=== PATIENT | male | born 1960 | race Caucasian/White ===

== ENCOUNTER → 2018-06-16 10:11 | Outpatient (CLI) | payer OTHER, SELFPAY ==
[2018-06-16 13:11] LABS: Hemoglobin A1C 7.2 % (4.5-6.2)
== END ==
PROVIDERS: PCP Family Medicine; Visit Provider Family Medicine
DX: E11.9 Type 2 diabetes mellitus without complications (principal)
CPT/HCPCS: 36415; 83036

== ENCOUNTER 2018-11-03 08:35 | Outpatient (CLI) | payer OTHER, SELFPAY ==
--- NOTE | 2018-11-03 08:06 | DI.RAD_ITS ---
SYMPTOM/DIAGNOSIS: S/P LT TKA, ONE YEAR FOLLOW UP LEFT KNEE: Two views. Comparison is made with 11/16/17. There are again seen post surgical changes of a left total knee replacement. The orthopedic hardware shows no evidence of failure. The bones are intact. The soft tissues are unremarkable. IMPRESSION: Stable left TKR.
== END 2018-11-03 08:55 ==
PROVIDERS: PCP Family Medicine; Visit Provider Physician Assistant
DX: Z96.652 Presence of left artificial knee joint (principal); Z47.1 Aftercare following joint replacement surgery
CPT/HCPCS: 73560

== ENCOUNTER 2018-12-13 09:44 | Outpatient (CLI) | payer OTHER, SELFPAY ==
[2018-12-13 13:00] LABS: CREATININE 0.93 mg/dL (0.70-1.30); Potassium 4.4 mmol/L (3.5-5.1)
[2018-12-13 13:29] LABS: Hemoglobin A1C 7.2 % (4.5-6.2)
[2018-12-16 16:12] LABS: Testosterone, Free 9.34 ng/dL (3.87-14.7); Testosterone, Total 322 ng/dL (240-950)
== END 2018-12-13 10:04 ==
PROVIDERS: PCP Family Medicine; Visit Provider Family Medicine
DX: E11.9 Type 2 diabetes mellitus without complications (principal); N52.9 Male erectile dysfunction, unspecified
CPT/HCPCS: 36415; 84402; 84403; 82565; 83036; 84132

== ENCOUNTER 2019-04-05 09:14 | Outpatient (CLI) | payer OTHER, SELFPAY ==
[2019-04-05 16:13] LABS: Hemoglobin A1C 7.4 % (4.5-6.2)
== END 2019-04-05 09:34 ==
PROVIDERS: PCP Family Medicine; Visit Provider Family Medicine
DX: E11.9 Type 2 diabetes mellitus without complications (principal)
CPT/HCPCS: 36415; 83036

== ENCOUNTER 2019-10-25 02:23 | Outpatient (CLI) | payer OTHER, SELFPAY ==
[2019-10-25 09:47] LABS: Hemoglobin A1C 6.6 % (3.8-5.6)
[2019-10-25 10:29] LABS: CREATININE 0.83 mg/dL (0.70-1.30); Calculated LDL 149 mg/dL; Cholesterol 224 mg/dL (<200); HDL Cholesterol 49 mg/dL (40-60); Potassium 4.1 mmol/L (3.5-5.1); Triglyceride 130 mg/dL (<150)
== END 2019-10-25 02:43 ==
PROVIDERS: PCP Family Medicine; Visit Provider Family Medicine
DX: E11.9 Type 2 diabetes mellitus without complications (principal); E66.9 Obesity, unspecified
CPT/HCPCS: 36415; 80061; 82565; 83036; 84132

== ENCOUNTER 2019-11-20 14:17 | Outpatient (CLI) | payer OTHER, SELFPAY ==
--- NOTE | 2019-11-20 14:33 | DI.RAD_ITS ---
EXAM: XR SHOULDER RT COMPLETE 2+V CLINICAL HISTORY: Pain TECHNIQUE: COMPARISON: LEFT SHOULDER COMPLETE from 02/17/2016 FINDINGS: Two views were obtained. There may be slight narrowing of the cartilaginous joint space of the gleno humeral joint. There are prominent marginal osteophytes of glenoid humerus. Prominent hypertrophic degenerative changes noted at the AC joint and there is hypertrophic spurring of the tip of the acrom ion as well. IMPRESSION: Degenerative changes as described above
== END 2019-11-20 14:37 ==
PROVIDERS: PCP Family Medicine; Visit Provider Student in an Organized Health Care Education/Training Program
DX: M25.512 Pain in left shoulder (principal); M19.012 Primary osteoarthritis, left shoulder
CPT/HCPCS: 73030

== ENCOUNTER 2019-12-14 09:53 | Outpatient (CLI) | payer OTHER, SELFPAY ==
[2019-12-17 11:26] LABS: PSA, Screening 0.5 ng/mL (0.0-3.5)
== END 2019-12-14 10:13 ==
PROVIDERS: PCP Family Medicine; Visit Provider Family Medicine
DX: Z12.5 Encounter for screening for malignant neoplasm of prostate (principal)
CPT/HCPCS: 36415; 84153

== ENCOUNTER 2020-09-03 09:56 | Emergency (ER) | payer OTHER, SELFPAY ==
[2020-09-03 10:00] VITALS: BP 150/77; PULSE 91; RESP 16; TEMP 36.8; O2SAT 94
--- NOTE | 2020-09-03 10:31 | ED.GENADUL_ITS ---
Discharge Plan Disposition Patient Disposition: HOME Condition: Stable Discharge Details Clinical Impression: Bursitis of hip, right Primary Care Provider: Evangelist Amin ED Provider: Raheem Glass Home Meds and New Rx's Prescriptions: Continued c-pap inhalation HS RF: 0 atorvastatin 20 mg tablet 20 mg PO QPM Qty: 90 RF: 3 losartan-hydrochlorothiazide 100-12.5 mg tablet 1 tab PO DAILY Qty: 90 RF: 3 metformin 1,000 mg tablet 1,000 mg PO BID Qty: 180 RF: 3 omeprazole 20 mg capsule,delayed release(DR/EC) 20 mg PO DAILY Qty: 90 RF: 3 amlodipine 10 mg tablet 10 mg PO DAILY Qty: 90 RF: 4 Jardiance 10 mg tablet 10 mg PO DAILY Qty: 90 RF: 3 meloxicam 15 mg tablet 15 mg PO DAILY Qty: 30 RF: 1 Discharge Instructions Instructions: Hip Bursitis (ED) Additional Instructions: Cool and/or warm compresses every 2 hours for 20 minutes. Gentle stretching as tolerated. [id number] medication as directed for symptomatic control. Please watch for new or worsening symptoms and return to the ER for any concerns. I do recommend reaching out to your orthopedic, Dr. Dumont, and seeing if they are able to see you sooner than your scheduled appointment on September 29. Medical Decision Making 59-year-old gentleman presents with right lateral hip pain that began yesterday, atraumatic. Clinically he has lateral point tenderness that would be most consistent with a hip bursitis. There has been no trauma, no clear indication for imaging at this time. No signs of infection such as septic joint, septic bursitis, cellulitis, etc. I do not believe that any laboratory values are indicated. He appears well, nontoxic and is neurologically intact. We discussed conservative therapy for bursitis such as anti-inflammatories, gentle stretching, cool and/or warm compresses, and attempting to expedite his outpatient care through orthopedics. He understands that if he fails conservative therapy he may need steroid injection. Patient comfortable this plan and has no additional questions or concerns. Medical Records Medical records reviewed: Yes I reviewed the patient's medical records. HPI General Mode of arrival: ambulatory . Date/Time Provider Initiated Documentation: 09/03/20 09:57 . Limitations to Documentation: no limitations . Information obtained by: patient . HPI Narrative: This is a 59-year-old gentl eman who reports a past medical history includes diabetes, hypertension, GERD, presenting to the ER today complaining of right hip pain. He reports that he has had his left knee replaced and is scheduled with orthopedics later this month for his right knee evaluation and subsequently likely replacement. He does report chronic pain in the right knee which does cause him to change his gait slightly. 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 Yesterday he noticed point tenderness over the right lateral hip, no known injury. He denies fever, redness, chest pain, shortness of breath, pain or swelling in his calf. He reports that the pain was severe yesterday, took Motrin and now the pain is moderate. He is able to bear weight. He denies numbness, tingling, weakness. Related Data Home Medications Medication Instructions Recorded Confirmed c-pap INHALATION HS 06/12/19 05/06/20 amlodipine 10 mg tablet 10 mg PO DAILY #90 tab 09/24/19 09/03/20 atorvastatin 20 mg tablet 20 mg PO QPM #90 tab 12/14/19 09/03/20 losartan 100 1 tab PO DAILY #90 tab 12/14/19 09/03/20 mg-hydrochlorothiazide 12.5 mg tablet empagliflozin 10 mg tablet 10 mg PO DAILY #90 tab 04/16/20 09/03/20 metformin 1,000 mg tablet 1,000 mg PO BID #180 tab-cap 05/06/20 09/03/20 omeprazole 20 mg capsule,delayed 20 mg PO DAILY #90 tab-cap 05/06/20 09/03/20 release meloxicam 15 mg tablet 15 mg PO DAILY #30 tab 09/03/20 09/03/20 Previous Rx's Medication Instructions Recorded amlodipine 10 mg tablet 10 mg PO DAILY #90 tab 09/24/19 atorvastatin 20 mg tablet 20 mg PO QPM #90 tab 12/14/19 losartan 100 1 tab PO DAILY #90 tab 12/14/19 mg-hydrochlorothiazide 12.5 mg tablet empagliflozin 10 mg tablet 10 mg PO DAILY #90 tab 04/16/20 metformin 1,000 mg tablet 1,000 mg PO BID #180 tab-cap 05/06/20 omeprazole 20 mg capsule,delayed 20 mg PO DAILY #90 tab-cap 05/06/20 release meloxicam 15 mg tablet 15 mg PO DAILY #30 tab 09/03/20 Allergies Allergy/AdvReac Type Severity Reaction Status Date / Time No Known Allergies Allergy Verified 09/03/20 10:05 General Stated Complaint: Orthopedic IBETH: 4 Review of Systems Constitutional Constitutional: Denies fever(s) and Denies weakness Cardiovascular Cardiovascular: Denies chest pain, Denies leg edema and Denies dyspnea Respiratory Respiratory: Denies dyspnea Musculoskeletal Musculoskeletal: Denies back pain, Reports arthralgias, Denies joint swelling, Denies numbness, Reports stiffness and Denies tingling Integumentary/Breasts Skin/Breast: Denies erythema Neurologic Neurologic: Denies numbness, Denies tingling and Denies weakness [facility] Medical History Chest pain Obesity Right rotator cuff tendonitis Subacromial injection: 11/20/19 Surgical History Arthroplasty of knee (10/11/13) 10/11/13 left 11/03/17 LEFT Family History Mother , age 90 No problems noted. Father Heart disease [place] Brother Diabetes Maternal Grandfather No problems noted. Maternal Grandmother Stroke Paternal Grandmother No problems noted. Sister No problems noted. Sister Diabetes Brother No problems noted. Son No problems noted. Daughter No problems noted. Daughter No problems noted. Social History Smoking/Tobacco Use Status: Never Smoking risk assessment performed?: Yes Alcohol Intake: current Alcohol Intake frequency: 0-2 drinks per day Alcohol type: beer and hard liquor Drug use: Never Substance use type: does not use Household members: spouse Housing: house Communication Needs: None Pets and animals: Yes Pets and animals: dog(s) Sexually active: Yes Do you think of yourself as: straight/heterosexual Current gender identity: male What is your relationship status?: How often do you talk on the phone with friends or family?: three or more times per week How often do you get together with friends or relatives?: twice per week How often do you attend evangelical or jehovah's witness services?: decline to answer Do you belong to any clubs or organized social groups?: yes Panel score (0-1 are the most socially isolated patients): 3 What type of physical activity do you participate in: other Duration: < 15 minutes/day Frequency: daily Debra/Zoroastrianism: Restoration Special debra needs: No Seatbelt use: sometimes Helmet use: No Drive intox or ride w/intox transport truck driver: No Do you feel safe at home: Yes Do you feel safe in your relationship?: Yes Exam Const General: cooperative, healthy appearing, comfortable and no acute distress Orientation: alert and awake HENMT Head: normal to inspection, normocephalic and atraumatic Mouth: moist mucous membranes Eyes Conjunctivae: conjunctivae normal Sclera: sclerae normal Neck Neck: normal visual inspection, full ROM, trachea midline and supple Resp Effort & Inspection: normal respiratory effort and able to speak in complete sentences Auscultation: clear to auscultation bilaterally Cardio Rate: regular rate Rhythm: regular rhythm GI Inspection: obesity Palpation: soft and nontender Back/Spine/Pelvis Back: No back tenderness Pelvis: no pain with anterior-posterior compression Skin General skin exam: no rashes or lesions noted Neuro General: patient alert, patient awake, moves all extremities and no focal motor deficits Cognition: normal cognition Speech: speech normal Gait: normal gait Motor: muscle tone normal throughout and strength 5/5 throughout Sensory Exam: no sensory deficits noted Extrem General: normal to inspection, full ROM, capillary refill normal, no pedal edema and no calf tenderness Right lower extremity: normal to inspection, full ROM, normal capillary refill and hip/thigh Details: normal to inspection, tenderness Location: of the hip Location: laterally (Point tenderness) and normal ROM; no swelling and no unusual warmth Upper/lower leg/hip images: 1. Point tenderness without warmth, swelling, erythema, induration or fluctuance. Skin is intact. Neuro, vascular, tendon intact. Patient with full internal and external rotation of the hip. Able to fully bear weight Psych Appearance: grossly normal Mental Status: mental status grossly normal Course Vital Signs Vital signs: Vital Signs Temperature 36.8 C 09/03/20 10:00 Pulse 91 H 09/03/20 10:00 Respiratory Rate 16 09/03/20 10:00 Blood Pressure 150/77 H 09/03/20 10:00 Pulse Oximetry 94 09/03/20 10:00 Temperature 36.8 C 09/03/20 10:00 Temperature Source Skin 09/03/20 10:00 Pulse 91 H 09/03/20 10:00 Respiratory Rate 16 09/03/20 10:00 Respiratory Effort 09/03/20 10:06 Blood Pressure 150/77 H 09/03/20 10:00 Blood Pressure Position Sitting 09/03/20 10:00 Pulse Oximetry 94 09/03/20 10:00 Oxygen Delivery Method Room Air 09/03/20 10:00 Oxygen Flow Rate 0 09/03/20 10:00 Pain Level 7 09/03/20 10:00 Comment 09/03/20 10:00
== END 2020-09-03 10:55 | disposition home or self-care (01) ==
LOC: ER 10:46
PROVIDERS: Emergency Provider Physician Assistant; PCP Family Medicine
DX: M70.71 Other bursitis of hip, right hip (principal); M25.561 Pain in right knee; G89.29 Other chronic pain; E11.9 Type 2 diabetes mellitus without complications; Z79.84 Long term (current) use of oral hypoglycemic drugs; I10 Essential (primary) hypertension
CPT/HCPCS: 99282; 99283

== ENCOUNTER 2020-09-29 11:53 | Outpatient (CLI) | payer OTHER, SELFPAY ==
--- NOTE | 2020-09-29 08:15 | DI.RAD_ITS ---
EXAM: XR KNEE RT 3V AP,LAT,UDAY CLINICAL HISTORY: RIGHT KNEE PAIN. TECHNIQUE: 2D digital imaging was performed. COMPARISON: CR KNEES BILAT AP STANDING LATS from 08/03/2017 CR BONE LENGTH from 11/16/2017 CR LEFT KNEE LIMITED 1 OR 2 VIEWS from 11/16/2017 CR XR knee LT 2V AP,lat from 11/03/2018 FINDINGS: There is no evidence of acute fracture. There appears to be a small amount of increased joint fluid. There are significant tricompartmental osteoarthritic degenerative changes. There is moderate-adva nced narrowing of medial and lateral joint spaces. Prominent bony excrescence-osteophyte extending o ff the superior aspect of the patella which is unchanged from 2017. There is some soft tissues swell ing around this level. Smaller osteophytes seen off the inferior pole of the patella. Opposing oste ophytes are seen on the anterior aspect of femoral condyles. No lytic osseous lesions. IMPRESSION: Moderate-advanced tricompartmental osteoarthritic degenerative changes as described above. Small rafiq nt effusion noted. DATA REPOSITORY: RADIATION DOSE DELIVERED:
== END 2020-09-29 12:13 ==
PROVIDERS: PCP Family Medicine; Referring Provider Family Medicine; Visit Provider Student in an Organized Health Care Education/Training Program
DX: M17.11 Unilateral primary osteoarthritis, right knee (principal); M25.461 Effusion, right knee
CPT/HCPCS: 73562

== ENCOUNTER 2020-12-17 10:34 | Outpatient (CLI) | payer OTHER, SELFPAY ==
[2020-12-17 13:05] LABS: Hemoglobin A1C 6.8 % (<5.7)
[2020-12-17 14:15] LABS: CREATININE 0.8 mg/dL (0.70-1.30); Calculated LDL 75 mg/dL (<100); Cholesterol 156 mg/dL (<200); HDL Cholesterol 47 mg/dL (40-60); Magnesium 1.9 mg/dL (1.8-2.4); Triglyceride 172 mg/dL (<150)
== END 2020-12-17 10:35 | disposition home or self-care (01) ==
LOC: LOS 10:34
PROVIDERS: PCP Family Medicine; Visit Provider Family Medicine
DX: I10 Essential (primary) hypertension (principal); E78.5 Hyperlipidemia, unspecified; R73.9 Hyperglycemia, unspecified; E83.42 Hypomagnesemia
CPT/HCPCS: 36415; 80061; 82565; 83036; 83735; 84132

== ENCOUNTER 2020-12-22 01:09 | Outpatient (CLI) | payer OTHER, SELFPAY ==
--- NOTE | 2020-12-22 06:30 | DI.NM_ITS ---
APPROVED REPORT Exam: Exercise Treadmill Patient Location: Out-Patient Room/Bed: Stress Nurse: Ria Melendez RN Ordering Provider:KENDY MURILLO, Contact Number: [phone] BMI: 35.15 Baseline Rhythm: Sinus Rhythm Comment: Poor R wave progression Indications: Left sided, sharp chest pain radiating to back. Medical History Medical History: HTN, HLD, DM, OA, Atypical chest pain Cardiac Medications: Metformin, Jardiance, Losartan - HCTZ, Amlodipine, Omeprazole, Atorvastatin Allergies: No known drug allergies Cardiac Risk Factors: HTN, Hyperlipidemia, Diabetes (non-insulin), FHX of CAD Previous Cardiac Procedures: None. Pretest Chest Pain Characteristics: None. Exercise History: Sedentary Lung Sounds: Clear to auscultation Heart Sounds: Regular Stress Test Details Test: Exercise stress testing was performed using a Syed protocol. Nuclear Acquisition: Rest Tc-99m/Stress Tc-99m 1 day Rest Isotope: Tc-99m Sestamibi. Dose: 15.2 Date: 12/22/2020 Injection Time: 0925 Stress Isotope: Tc-99m Sestamibi. Dose: 47.0 Date: 12/22/2020 Injection Time: 1122 HR Resting HR Supine: 73 bpm Max Heart Rate (APMHR): 162 bpm Resting HR Standin bpm Target HR (85% APMHR): 137 bpm Max HR Achieved: 150 bpm % of APMHR: 92 Recovery HR: 92 bpm HR response to stress: Normal HR response to stress BP Resting BP Supine: 142/82 mmHg Resting BP Standin/84 mmHg Max BP: 186/72 mmHg Recovery BP: 154/80 mmHg BP response to stress: Normal blood pressure response to stress. ECG Resting ECG: Sinus Rhythm, Poor R-wave progression Ectopy: occasional PVC Stress ECG: Sinus Tachycardia ST Change: No significant ST segment changes noted Arrhythmia: PVCs. Recovery ECG: Sinus Rhythm Recovery ST Change: No significant ST segment changes noted Recovery Arrhythmia: PVCs. Clinical Reason for Termination: Dyspnea Stress Symptoms: Dyspnea Exercise duration: 09 min20 sec Highest Stage Reached: Stage 4: 4.2 mph at 16% grade. Exercise capacity: 10.73 METs Samuels Treadmill Score: 9 Rate Pressure Product: [id number] Stress ECG Conclusion 1. The patient exercised for 9 minutes (11 METS). Exercise was stopped due to dyspnea. 2. Patient no symptoms suggestive of ischemia. 3. There was no ECG changes suggestive of ischemia. Samuels Treadmill Score is 9 which is Low risk. Stress Test Summary STAGE Time (mins) Speed (mph) Grade (%) HR BP SYMPTOMS METS Supine 73 142/82 Standing 77 130/84 1 3 1.7 10 118 146/78 SpO2 96% 4.6 2 6 2.5 12 128 174/76 SpO2 96% 7 3 9 3.4 14 146 SpO2 91% 10.2 1 min recovery 130 186/72 SpO2 92% 3 min recovery 99 170/72 SpO2 98% 6 min recovery 92 154/80 MPI Conclusion The ejection fraction was 63% with stress. There were no wall motion abnormalities. There was no evidence of ischemia on the imaging portion of the exam. This represents a normal SPECT stress test.
== END 2020-12-22 08:57 ==
LOC: DI 01:09
PROVIDERS: PCP Family Medicine; Visit Provider Family Medicine
DX: R07.89 Other chest pain (principal); I10 Essential (primary) hypertension; E78.5 Hyperlipidemia, unspecified; E11.9 Type 2 diabetes mellitus without complications
CPT/HCPCS: 78452; 93017

== ENCOUNTER 2021-06-23 15:53 | Outpatient (CLI) | payer OTHER, SELFPAY ==
--- NOTE | 2021-06-23 11:15 | DI.RAD_ITS ---
Exam(s) XR SHOULDER RT COMPLETE 2+V EXAM: XR SHOULDER RT COMPLETE 2+V CLINICAL HISTORY: acute right shoulder pain. TECHNIQUE: 2D digital imaging was performed. COMPARISON: CR XR SHOULDER RT COMPLETE 2+V from 11/20/2019 FINDINGS: BONES: No acute fracture is present. No bony destructive lesion is seen. JOINTS: No dislocation present. Prominent spurring at the acromioclavicular joint and inferior arm a spect of the acromion. Spurring is also noted at the glenohumeral joint and greater tuberosity. SOFT TISSUE: A small calcification is noted adjacent to the greater tuberosity which could indicate c alcific tendinosis.. IMPRESSION: Degenerative changes of the AC joint and glenohumeral joint. DATA REPOSITORY: RADIATION DOSE DELIVERED:
== END 2021-06-23 15:54 | disposition home or self-care (01) ==
LOC: DIORS 15:53
PROVIDERS: PCP Family Medicine; Visit Provider Physician Assistant
DX: M25.511 Pain in right shoulder (principal); M19.011 Primary osteoarthritis, right shoulder
CPT/HCPCS: 73030

== ENCOUNTER 2021-07-16 01:24 | Outpatient (CLI) | payer OTHER, SELFPAY ==
--- NOTE | 2021-07-16 08:30 | DI.MRI_ITS ---
Exam(s) MR UPPER JOINT RT WO EXAM: MR UPPER JOINT RT WO CLINICAL HISTORY: PAIN, rt rotator cuff tear, M75.101. TECHNIQUE: Multiplanar multisequence MRI was performed. COMPARISON: CR XR SHOULDER RT COMPLETE 2+V from 06/23/2021 FINDINGS: BONES: There is marrow edema in the anterolateral aspect of the humeral head consistent with a contus ion. JOINTS: Moderate degenerative changes are seen at the acromioclavicular joint and the greater tuberos ity. The glenohumeral joint is normal. TENDONS: Supraspinatus: There is a full-thickness supraspinatus tear anteriorly at its insertion site. Infraspinatus: There is hyperintense signal seen within the infraspinatus tendon at its insertion clara picious for partial tear. Subscapularis: Unremarkable. Teres Minor: Unremarkable. Biceps and [place]: There appears to be medial subluxation of the biceps tendon. MUSCLES: Unremarkable. GLENOID LABRUM: Unremarkable on this noncontrast examination. SOFT TISSUES: There is mild edema in the soft tissues around the shoulder and acromioclavicular joint . No focal fluid collection is seen. LIGAMENTS: Unremarkable. OTHER: There is a small amount of fluid in the subdeltoid bursa. IMPRESSION: 1. Full-thickness tear of the supraspinatus tendon. 2. Findings of a partial infraspinatus tendon tear. 3. Findings suggestive of mild medial subluxation of the biceps tendon. 4. Contusion involving the anterolateral aspect of the humeral head. 5. Moderate degenerative changes at the acromioclavicular joint. DATA REPOSITORY:
== END 2021-07-16 01:44 ==
PROVIDERS: PCP Family Medicine; Visit Provider Student in an Organized Health Care Education/Training Program
DX: M75.101 Unspecified rotator cuff tear or rupture of right shoulder, not specified as traumatic (principal); M19.011 Primary osteoarthritis, right shoulder; T14.8XXA Other injury of unspecified body region, initial encounter
CPT/HCPCS: 73221

== ENCOUNTER 2021-10-20 17:02 | Outpatient (REF) | payer OTHER, SELFPAY ==
[2021-10-22 17:01] LABS: COVID-19 RT-PCR UVMMC Result Negative (Negative)
== END 2021-10-20 17:03 | disposition home or self-care (01) ==
LOC: NCHCN 17:02
PROVIDERS: PCP Family Medicine; Visit Provider Family Medicine
DX: Z20.822 Contact with and (suspected) exposure to COVID-19 (principal)
CPT/HCPCS: U0003

== ENCOUNTER 2021-11-02 02:08 | Outpatient (CLI) | payer OTHER, SELFPAY ==
[2021-11-02 09:02] LABS: HCT 45.9 % (40.0-50.0); HGB 15.8 g/dL (13.5-17.5); MCH 32.2 pg (27.0-33.0); MCHC 34.4 % (32.0-36.0); MCV 93.5 fL (80-95); MPV 9.7 fL (8.0-11.0); Platelet Count 175 10^3/uL (130-400); RBC 4.91 10^6/uL (4.36-5.78); RDW-SD 41.3 fL; WBC 5.83 10^3/uL (4.4-10.8)
[2021-11-02 10:42] LABS: Anion Gap 10.2 mmol/L (3-11); BUN 14 mg/dL (7-18); CO2 29.8 mmol/L (21.0-32.0); CREATININE 0.8 mg/dL (0.70-1.30); Calcium 9.3 mg/dL (8.5-10.1); Chloride 100 mmol/L (98-107); Glucose 217 mg/dL (74-106); Potassium 4.2 mmol/L (3.5-5.1); Sodium 140 mmol/L (136-145)
[2021-11-02 11:01] LABS: Source Nasal/Nares
[2021-11-02 14:29] LABS: COVID-19 PCR Negative (Negative)
== END 2021-11-02 02:09 | disposition home or self-care (01) ==
LOC: LBO 02:08
PROVIDERS: PCP Family Medicine; Visit Provider Student in an Organized Health Care Education/Training Program
DX: M17.11 Unilateral primary osteoarthritis, right knee (principal); Z01.818 Encounter for other preprocedural examination; Z20.822 Contact with and (suspected) exposure to COVID-19
CPT/HCPCS: 36415; 80048; 85027; 87635

== ENCOUNTER 2021-11-03 07:40 | Day surgery (SDC) | payer OTHER, SELFPAY ==
[2021-11-03] VITALS (9 sets, daily range): BP systolic 126–165; BP diastolic 76–92; PULSE 63–83; RESP 16–22; TEMP 36.3–36.6; O2SAT 94–98; BMI 35.6
--- NOTE | 2021-11-03 07:35 | DSE_ITS ---
Documented by User: Inés Thompson 11/03/21 07:42 DS: Diagnosis Discharge Diagnosis (1) Osteoarthritis of knee: Status: Acute Discharge Plan Disposition Patient Disposition: HOME Condition: Good Discharge Details Reason For Visit: Right knee DJD Attending Provider: Juan Dumont Primary Care Provider: Evangelist Amin Home Meds and New Rx's Prescriptions: New celecoxib [Celebrex] 200 mg capsule 200 mg PO BID Qty: 30 RF: 0 aspirin 81 mg tablet,delayed release (DR/EC) 81 mg PO BID 30 Days Qty: 60 RF: 0 acetaminophen 500 mg tablet 1,000 mg PO Q8H PRN Qty: 90 RF: 0 docusate sodium [Colace] 100 mg capsule 100 mg PO BID Qty: 30 RF: 0 gabapentin 300 mg capsule 300 mg PO QHS Qty: 14 RF: 0 oxycodone 5 mg tablet 5 mg PO Q4H PRN (Reason: severe post-operative pain) Qty: 18 RF: 0 Continued c-pap inhalation HS RF: 0 amlodipine 10 mg tablet 10 mg PO DAILY Qty: 90 RF: 4 omeprazole 20 mg capsule,delayed release(DR/EC) 20 mg PO DAILY Qty: 90 RF: 3 atorvastatin 20 mg tablet 20 mg PO QPM Qty: 90 RF: 3 losartan-hydrochlorothiazide 100-12.5 mg tablet 1 tab PO DAILY Qty: 90 RF: 3 Jardiance 10 mg tablet 10 mg PO DAILY Qty: 90 RF: 3 metformin 1,000 mg tablet 1,000 mg PO BID Qty: 180 RF: 3 Discharge Instructions Additional Instructions: Total Knee Discharge Instructions Activity: The most important activity is to walk. You should try to take short walks a few times a day. It is important that when resting you work on keeping the knee straight. Avoid putting a pillow behind the knee as this will encourage flexion. Work on range of motion exercises as provided by Physical Therapy. If you have the [email or web address] bike coming, this will be your primary tool for exercise after the knee replacement. You should use it and follow the directions for the knee. Utilize the other exercises sparingly based on your symptoms. - Start outpatient physical therapy within 2 weeks. - You should wear the ANALY hose on both legs for 2 weeks. You may remove these at night. You may also use any compression sock in place of the ANALY hose. - Utilize [employer] to review exercises, see videos on exercises and obtain basic information pertaining to your surgery and your recovery. Dressing: Remove the Walter wrap by 2 days after your surgery and put on the ANALY stocking given to you from the hospital. Keep the surgical dressing (underneath the WALTER wrap) in place for at least one week. After the first week it may be removed and replaced with light gauze and tape or nothing. The wound and dressi ng may get wet after 3 days but avoid soaking the dressing or otherwise it will need to be changed. Many people prefer covering the dressing with cling wrap (saran wrap) to minimize it from getting soaked. If it gets wet, just pat dry. If it starts to peel off then it will need to be changed. Medications: - You should take Tylenol and anti-inflammatory Celebrex as your primary pain control medications. If the Celebrex is too expensive or not covered, please call the office for another alternative (Advil/Ibuprofen or Naproxen/Aleve) - You have been prescribed a stronger pain medication Oxycodone for breakthrough pain, take as needed as prescribed. - You take Omeprazole at baseline - continue to take to help reduce stomach acid and reflux. - You have been prescribed Gabapentin to take at night for restlessness and nerve pain. - You will be taking Aspirin 81mg twice a day for DVT prevention unless instructed otherwise. - If you have constipation you should take Colace (which has been prescribed) or Miralax (which you may purchase [id number]). It takes most people 3-4 days to have a bowel movement. Follow-up: 2 weeks If you have any acute concerns or questions, please do not hesitate to contact the office at [phone]. You may contact Dr. Dumont with any questions after hours through the hospital at [phone] or on his cell phone at [phone]. Stand Alone Forms: Anesthesia Discharge Inst., Linda Sage (DSU) Referrals: Juan Dumont MD [ [facility] STAFF PHYSICIAN] - Equipment/Supplies: Walker Activity:: Elevate Remove Dressings/Wound Care:: Do Not Remove Shower/Bathe:: Cover Diet:: As Tolerated Discharge Orders Discharge Orders: Discharge Order (Routine); Ordered 11/03/21 Ordered By: Juan Dumont DS: Data Vitals/I&O Vitals and I&O: Intake & Output 11/02/21 11/02/21 11/03/21 11:59 23:59 11:59 Weight 114.305 kg PFSH All Active Problems Alcohol intake above recommended sensible limits (Acute) GERD (gastroesophageal reflux disease) (Acute) EGD ()-reflux esophagitis Increased body mass index (Acute) Knee pain, left (Acute) left; MRI showing degenerative changes in the medial meniscus; chronic lateral meniscal tear--arthroscopy 10/12 Osteoarthritis of knee (Acute) right knee; S/P arthroscopy x 3; 08/05/14-[facility] B/L KNEES 11/04/17 LEFT KNEE-S/P TOTAL KNEE ARTHROPLASTY-DR. DUMONT Post-traumatic osteoarthritis of right knee (Acute 12/13/16) Type 2 diabetes mellitus without complication (Acute 03/26/16) encouraged carb restriction and weight loss Ingrown toenail (Acute) will try longer course of antibiotic with ongoing soaking Status post total left knee replacement (Acute) DOS: 11/03/17 Dr. Dumont Well adult (Chronic) Viral URI with cough (Acute) Diabetes mellitus (Chronic) Hypertension (Chronic) History of arthroscopy of knee (Acute 10/11/13) Fracture of left ankle (Acute) Obesity (Chronic) Right rotator cuff tendonitis (Acute) Subacromial injection: 11/20/19 Bursitis of right shoulder (Acute) Lumbago without sciatica (Acute ~10/2019) Chest pain (Acute) Osteoarthritis of right knee (Acute) Right rotator cuff tear (Acute) Medical History CHRISTELLE (obstructive sleep apnea) Surgical History Arthroplasty of knee (10/11/13) 10/11/13 left 11/03/17 LEFT Family History (Updated 12/18/20 @ 13:00 by Sravanthi Miller) Mother , age 90 No problems noted. Father Heart disease [place] Brother Diabetes Maternal Grandfather No problems noted. Maternal Grandmother Stroke Paternal Grandmother No problems noted. Sister No problems noted. Sister Diabetes Brother No problems noted. Son No problems noted. Daughter No problems noted. Daughter No problems noted. Social History (Updated 12/18/20 @ 13:00 by Sravanthi Miller) Smoking/Tobacco Use Status: Never Smoking risk assessment performed?: Yes Alcohol Intake: current Alcohol Intake frequency: 0-2 drinks per day Alcohol type: beer and hard liquor Drug use: Never Substance use type: does not use Household members: spouse Housing: house Communication Needs: None Pets and animals: Yes Pets and animals: dog(s) Sexually active: Yes Do you think of yourself as: straight/heterosexual Current gender identity: male What is your relationship status?: How often do you talk on the phone with friends or family?: three or more times per week How often do you get together with friends or relatives?: twice per week How often do you attend confucianism or denominational services?: decline to answer Do you belong to any clubs or organized social groups?: yes Panel score (0-1 are the most socially isolated patients): 3 What type of physical activity do you participate in: other Duration: < 15 minutes/day Frequency: daily Debra/Cheondoism: Religious Special debra needs: No Seatbelt use: sometimes Helmet use: No Drive intox or ride w/intox stacker driver: No Do you feel safe at home: Yes Do you feel safe in your relationship?: Yes Documented by User: Juan Dumont MD 11/03/21 14:23 Date of service: 11/03/21 Time of Service: 14:23 Discharge Plan Disposition Patient Disposition: HOME Condition: Good Discharge Details Reason For Visit: Right knee DJD Attending Provider: Juan Dumont Primary Care Provider: Evangelist Amin Home Meds and New Rx's Prescriptions: New celecoxib [Celebrex] 200 mg capsule 200 mg PO BID Qty: 30 RF: 0 aspirin 81 mg tablet,delayed release (DR/EC) 81 mg PO BID 30 Days Qty: 60 RF: 0 acetaminophen 500 mg tablet 1,000 mg PO Q8H PRN Qty: 90 RF: 0 docusate sodium [Colace] 100 mg capsule 100 mg PO BID Qty: 30 RF: 0 gabapentin 300 mg capsule 300 mg PO QHS Qty: 14 RF: 0 oxycodone 5 mg tablet 5 mg PO Q4H PRN (Reason: severe post-operative pain) Qty: 18 RF: 0 Continued c-pap inhalation HS RF: 0 amlodipine 10 mg tablet 10 mg PO DAILY Qty: 90 RF: 4 omeprazole 20 mg capsule,delayed release(DR/EC) 20 mg PO DAILY Qty: 90 RF: 3 atorvastatin 20 mg tablet 20 mg PO QPM Qty: 90 RF: 3 losartan-hydrochlorothiazide 100-12.5 mg tablet 1 tab PO DAILY Qty: 90 RF: 3 Jardiance 10 mg tablet 10 mg PO DAILY Qty: 90 RF: 3 metformin 1,000 mg tablet 1,000 mg PO BID Qty: 180 RF: 3 Discharge Instructions Additional Instructions: Total Knee Discharge Instructions Activity: The most important activity is to walk. You should try to take short walks a few times a day. It is important that when resting you work on keeping the knee straight. Avoid putting a pillow behind the knee as this will encourage flexion. Work on range of motion exercises as provided by Physical Therapy. If you have the [email or web address] bike coming, this will be your primary tool for exercise after the knee replacement. You should use it and follow the directions for the knee. Utilize the other exercises sparingly based on your symptoms. - Start outpatient physical therapy within 2 weeks. - You should wear the ANALY hose on both legs for 2 weeks. You may remove these at night. You may also use any compression sock in place of the ANALY hose. - Utilize [employer] to review exercises, see videos on exercises and obtain basic information pertaining to your surgery and your recovery. Dressing: Remove the Walter wrap by 2 days after your surgery and put on the ANALY stocking given to you from the hospital. Keep the surgical dressing (underneath the WALTER wrap) in place for at least one week. After the first week it may be removed and replaced with light gauze and tape or nothing. The wound and dressing may get wet after 3 days but avoid soaking the dressing or otherwise it will need to be changed. Many people prefer covering the dressing with cling wrap (saran wrap) to minimize it from getting soaked. If it gets wet, just pat dry. If it starts to peel off then it will need to be changed. Medications: - You should take Tylenol and anti-inflammatory Celebrex as your primary pain control medications. If the Celebrex is too expensive or not covered, please call the office for another alternative (Advil/Ibuprofen or Naproxen/Aleve) - You have been prescribed a stronger pain medication Oxycodone for breakthrough pain, take as needed as prescribed. - You take Omeprazole at baseline - continue to take to help reduce stomach acid and reflux. - You have been prescribed Gabapentin to take at night for restlessness and nerve pain. - You will be taking Aspirin 81mg twice a day for DVT prevention unless instructed otherwise. - If you have constipation you should take Colace (which has been prescribed) or Miralax (which you may purchase [id number]). It takes most people 3-4 days to have a bowel movement. Follow-up: 2 weeks If you have any acute concerns or questions, please do not hesitate to contact the office at [phone]. You may contact Dr. Dumont with any questions after hours through the hospital at [phone] or on his cell phone at [phone]. Stand Alone Forms: Anesthesia Discharge Inst., Linda Sage ([facility]) Referrals: Juan Dumont MD [ [facility] STAFF PHYSICIAN] - Equipment/Supplies: Walker Activity:: Elevate Remove Dressings/Wound Care:: Do Not Remove Shower/Bathe:: Cover Diet:: As Tolerated Discharge Orders Discharge Orders: Discharge Order (Routine); Ordered 11/03/21 Ordered By: Juan Dumont DS: Summary Time Spent with Patient providing and/or coordinating discharge services: Less than 30 minutes Status at Discharge Functional status at discharge: uses cane/walker Overall status at discharge: patient is progressing back to baseline Mental Status: mental status grossly normal Speech and Movement: speech and movement normal Mood: congruent mood Affect: normal affect Exam Psych Mental Status: mental status grossly normal Speech and Movement: speech and movement normal Mood: congruent mood Affect: normal affect PFSH All Active Problems Alcohol intake above recommended sensible limits (Acute) GERD (gastroesophageal reflux disease) (Acute) EGD ()-reflux esophagitis Increased body mass index (Acute) Knee pain, left (Acute) left; MRI showing degenerative changes in the medial meniscus; chronic lateral meniscal tear--arthroscopy 10/12 Osteoarthritis of knee (Acute) right knee; S/P arthroscopy x 3; 08/05/14-[facility] B/L KNEES 11/04/17 LEFT KNEE-S/P TOTAL KNEE ARTHROPLASTY-DR. DUMONT Post-traumatic osteoarthritis of right knee (Acute 12/13/16) Type 2 diabetes mellitus without complication (Acute 03/26/16) encouraged carb restriction and weight loss Ingrown toenail (Acute) will try longer course of antibiotic with ongoing soaking Status post total left knee replacement (Acute) DOS: 11/03/17 Dr. Dumont Well adult (Chronic) Viral URI with cough (Acute) Diabetes mellitus (Chronic) Hypertension (Chronic) History of arthroscopy of knee (Acute 10/11/13) Fracture of left ankle (Acute) Obesity (Chronic) Right rotator cuff tendonitis (Acute) Subacromial injection: 11/20/19 Bursitis of right shoulder (Acute) Lumbago without sciatica (Acute ~10/2019) Chest pain (Acute) Osteoarthritis of right knee (Acute) Right rotator cuff tear (Acute) Medical History CHRISTELLE (obstructive sleep apnea) Surgical History Arthroplasty of knee (10/11/13) 10/11/13 left 11/03/17 LEFT Family History (Updated 12/18/20 @ 13:00 by Sravanthi Miller) Mother , age 90 No problems noted. Father Heart disease [place] Brother Diabetes Maternal Grandfather No problems noted. Maternal Grandmother Stroke Paternal Grandmother No problems noted. Sister No problems noted. Sister Diabetes Brother No problems noted. Son No problems noted. Daughter No problems noted. Daughter No problems noted. Social History (Updated 12/18/20 @ 13:00 by Sravanthi Miller) Smoking/Tobacco Use Status: Never Smoking risk assessment performed?: Yes Alcohol Intake: current Alcohol Intake frequency: 0-2 drinks per day Alcohol type: beer and hard liquor Drug use: Never Substance use type: does not use Household members: spouse Housing: house Communication Needs: None Pets and animals: Yes Pets and animals: dog(s) Sexually active: Yes Do you think of yourself as: straight/heterosexual Current gender identity: male What is your relationship status?: How often do you talk on the phone with friends or family?: three or more times per week How often do you get together with friends or relatives?: twice per week How often do you attend confucianism or denominational services?: decline to answer Do you belong to any clubs or organized social groups?: yes Panel score (0-1 are the most socially isolated patients): 3 What type of physical activity do you participate in: other Duration: < 15 minutes/day Frequency: daily Debra/Cheondoism: Religious Special debra needs: No Seatbelt use: sometimes Helmet use: No Drive intox or ride w/intox stacker driver: No Do you feel safe at home: Yes Do you feel safe in your relationship?: Yes
--- NOTE | 2021-11-03 08:09 | W.ANESPRE ---
General Info Date of Service Date Performed: 11/03/21 Height: 5 ft 10.5 in Weight: 114.305 kg Body Mass Index (BMI): 35.6 Surgical Procedure: Operation Date: 11/03/21 09:55 Proposed Procedures Side Surgeon p Knee Total Arthroplasty Right Juan Dumont MD Meds Allergies and Home Medications Allergies Allergy/AdvReac Type Severity Reaction Status Date / Time No Known Allergies Allergy Verified 11/03/21 08:38 Home Medication Medication Instructions Recorded c-pap INHALATION HS 06/12/19 atorvastatin 20 mg tablet 20 mg PO QPM #90 tab 12/17/20 losartan 100 1 tab PO DAILY #90 tab 01/22/21 mg-hydrochlorothiazide 12.5 mg tablet empagliflozin 10 mg tablet 10 mg PO DAILY #90 tab 04/02/21 metformin 1,000 mg tablet 1,000 mg PO BID #180 tab-cap 06/24/21 amlodipine 10 mg tablet 10 mg PO DAILY #90 tab 06/26/21 omeprazole 20 mg capsule,delayed 20 mg PO DAILY #90 tab-cap 06/26/21 release acetaminophen 1,000 mg PO Q8H PRN #90 tab 11/03/21 aspirin 81 mg PO BID 30 Days #60 tab 11/03/21 celecoxib [Celebrex] 200 mg PO BID #30 cap 11/03/21 docusate sodium [Colace] 100 mg PO BID #30 cap 11/03/21 gabapentin 300 mg PO QHS #14 cap 11/03/21 oxycodone 5 mg PO Q4H PRN #18 tab 11/03/21 Current Visit Medications: Current Medications Generic Name Dose Route Start Last Admin Trade Name Freq PRN Reason Stop Dose Admin Acetaminophen 1,000 mg 11/03/21 06:00 Acetaminophen 500 Mg Tab PO 11/03/21 16:00 PREOP PASCUAL Acetaminophen 1,000 mg 11/03/21 14:00 Acetaminophen 500 Mg Tab PO TID PASCUAL Aspirin 81 mg 11/03/21 20:00 Aspirin E.C. 81 Mg Tabec PO BID PASCUAL Celecoxib 400 mg 11/03/21 06:00 Celecoxib 200 Mg Cap PO 11/03/21 16:00 PREOP PASCUAL Celecoxib 200 mg 11/03/21 20:00 Celecoxib 200 Mg Cap PO BID PASCUAL Docusate Sodium 100 mg 11/03/21 07:32 Docusate Sodium 100 Mg Cap PO BID PRN PRN Constipation Gabapentin 300 mg 11/03/21 06:00 Gabapentin 300 Mg Cap PO 11/03/21 16:00 PREOP PASCUAL Gabapentin 300 mg 11/03/21 22:00 Gabapentin 300 Mg Cap PO HS PASCUAL Hydromorphone HCl 0.5 mg 11/03/21 07:32 Hydromorphone 2 Mg/Ml Vial IVP Q2H PRN PRN Tranexamic Acid 1,000 mg/ 60 mls @ 360 mls/hr 11/03/21 06:00 Sodium Chloride IVPB 11/03/21 16:00 PREOP PASCUAL Tranexamic Acid 1,000 mg/ 60 mls @ 360 mls/hr 11/03/21 06:00 Sodium Chloride IVPB 11/03/21 16:00 DIRECTED PASCUAL Ringer's Solution 1,000 mls @ 80 mls/hr 11/03/21 06:00 IV 12/02/21 23:59 INFUSION PASCUAL Cefazolin Sodium/Dextrose 2 gm in 50 mls @ 100 mls/hr 11/03/21 06:00 Ancef Duplex IVPB 12/02/21 23:59 PREOP PASCUAL Cefazolin Sodium/Dextrose 1 gm in 50 mls @ 100 mls/hr 11/03/21 10:00 Ancef Duplex IVPB 11/04/21 02:29 Q8H PASCUAL IV Miscellaneous Supplies 1 each 11/03/21 06:00 Iv Access IV 12/02/21 23:59 DIRECTED PASCUAL Ondansetron HCl 4 mg 11/03/21 07:32 Ondansetron 4 Mg/2 Ml Vial IVP Q6H PRN PRN Nausea Oxycodone HCl 0 mg 11/03/21 07:32 Oxycodone 5 Mg Tab PO Q3H PRN PRN Pain Polyethylene Glycol 17 gm 11/03/21 07:32 Polyethylene Glycol 3350 17 Gm Packet PO BID PRN PRN Constipation Sodium Chloride 0 ml 11/03/21 06:00 Normal Saline Flush 10 Ml Syr IV 12/02/21 23:59 PRN PRN Sodium Chloride 0 ml 11/03/21 06:00 Normal Saline 10 Ml Vial IJ 12/02/21 23:59 DIRECTED PRN Sterile Water 0 ml 11/03/21 06:00 Water,Injection,Sterile 10 Ml Vial IJ 12/02/21 23:59 DIRECTED PRN PFSH Active Problems Active Problems: Problem Status Onset Code Alcohol intake above recommended sensible limits Z72.89 GERD (gastroesophageal reflux disease) K21.9 Increased body mass index R63.8 Knee pain, left M25.562 Osteoarthritis of knee M17.10 Post-traumatic osteoarthritis of right knee 12/13/16 M17.31 Type 2 diabetes mellitus without complication 03/26/16 E11.9 Ingrown toenail L60.0 Status post total left knee replacement Z96.652 Well adult Viral URI with cough J06.9, B97.89 Diabetes mellitus E11.9 Hypertension I10 History of arthroscopy of knee 10/11/13 Z98.890 Fracture of left ankle S82.892A Obesity E66.9 Right rotator cuff tendonitis M75.81 Bursitis of right shoulder M75.51 Lumbago without sciatica ~10/2019 M54.5 Chest pain R07.9 Osteoarthritis of right knee M17.11 Right rotator cuff tear M75.101 Medical History Medical History CHRISTELLE (obstructive sleep apnea) Surgical History Surgical History Arthroplasty of knee (10/11/13) 10/11/13 left 11/03/17 LEFT Tobacco Smoking/Tobacco Use Status: Never Passive smoking exposure: Yes Alcohol Alcohol Intake: current Alcohol intake frequency: 0-2 drinks per day Alcohol type: beer and hard liquor Substance Use Substance use: Never Substance use type: does not use Vital Signs and Lab Results Vital Signs Most Recent Vital Signs in EMR: Most Recent Vital Signs Temp Pulse Resp BP Pulse Ox 36.3 C L 83 18 165/86 H 98 11/03/21 07:56 11/03/21 07:56 11/03/21 07:56 11/03/21 07:56 11/03/21 07:56 Lab Results Blood Type / Crossmatch: No Data to Display Complete Blood Count: White Blood Count 5.83 10^3/uL (4.4-10.8) 11/02/21 08:40 11/02/21 Red Blood Count 4.91 10^6/uL (4.36-5.78) 11/02/21 08:40 11/02/21 Hemoglobin 15.8 g/dL (13.5-17.5) 11/02/21 08:40 11/02/21 Hematocrit 45.9 % (40.0-50.0) 11/02/21 08:40 11/02/21 Platelet Count 175 10^3/uL (130-400) 11/02/21 08:40 11/02/21 Complete Metabolic Panel: Sodium Level 140 mmol/L (136-145) 11/02/21 08:40 11/02/21 Potassium Level 4.2 mmol/L (3.5-5.1) 11/02/21 08:40 11/02/21 Chloride Level 100 mmol/L (98-107) 11/02/21 08:40 11/02/21 Carbon Dioxide Level 29.8 mmol/L (21.0-32.0) 11/02/21 08:40 11/02/21 Blood Urea Nitrogen 14 mg/dL (7-18) 11/02/21 08:40 11/02/21 Creatinine 0.8 mg/dL (0.70-1.30) 11/02/21 08:40 11/02/21 Estimated GFR/1.73 m2 >= 60.00 (mL/min/1.73m2) 11/02/21 08:40 11/02/21 Calcium Level 9.3 mg/dL (8.5-10.1) 11/02/21 08:40 11/02/21 Glucose Level 217 mg/dL (74-106) H 11/02/21 08:40 11/02/21 Liver Function Panel: No Data to Display Coagulation Panel: No Data to Display Cardiac Panel: No Data to Display Arterial Blood Gas: No Data to Display Venous Blood Gas: No Data to Display Pancreas Panel: No Data to Display Thyroid Panel: No Data to Display Infectious Disease: Coronavirus (COVID-19)(PCR) Negative (Negative) 11/02/21 08:44 11/02/21 Coronavirus 2019 Source Nasal/Nares 11/02/21 08:44 11/02/21 Blood Cultures: No Data to Display Toxicology Panel: No Data to Display Imaging and Studies Imaging and Studies Study information below may be from another EMR and interpreted by another provider. Please see original notes in EMR for more complete details. Stress Test Summary: 12/2020: EF 63%, no wma, no evidence of ischemia. 11 mets, no ekg changes suggestive of ischemia. Anesthesia Assessment and Plan Anesthesia History Personal History: No History of Anesthesia Complications Family History: No Family History of Anesthesia Complications Exercise Tolerance Exercise Tolerance: Metabolic Equivalents>4 Cardiac & Pulmonary Exam Cardiac Exam: Normal S1/S2 Heart Sounds Pulmonary Exam: Clear Bilateral Breath Sounds Implantable Cardiac Device Does patient have a Pacemaker or an ICD?: No Airway Exam Known Difficult Airway: No Mallampati Class: 3 Mouth Opening: Narrow (< 3cm) Thyromental Distance: Greater than 3 cm Facial Hair: Full Ferraro Neck Range of Motion: Full ROM Neck Circumference: Thick Teeth Condition: Normal Dentition ASA Classification ASA Score: ASA 2 Emergency Case?: No NPO Status NPO Status: NPO Clears >2 hours, Solids >8 hours Anesthesia Plan Resuscitation Status: Full Code Anesthesia Technique: Spinal Anesthesia Airway Planned: Natural Airway Monitors Used: Standard Monitors Preoperative Comments:: 60 yo male for right knee TKA. Sig PMHx: DM (jardance/metformin), GERD (omeprozole), HTN (lisinopril/hctz/amlodipine), CHRISTELLE (cpap) Previous Anes: LMA 5. spinal 1.6 mL heavy. Denies issues with his previous TKA, plan will be same (ACB/spinal). we did discuss that we use a shorter acting local in the spinal now vs when he had his first knee done.
[2021-11-03] MEDS: Celecoxib 200 MG CAP 400 MG PO (08:16)
[2021-11-03] MEDS: Gabapentin 300 MG CAP PO (08:17)
[2021-11-03] MEDS: Acetaminophen 500 MG TAB 1000 MG PO (08:17)
[2021-11-03] MEDS: Lactated Ringers 1,000 ML 80 ML IV (08:34)
--- NOTE | 2021-11-03 09:08 | W.ANESNERVE ---
Nerve Block Single Injection Procedure Date and Time Date Performed: 11/03/21 Procedure Start: 09:19 Location Where Procedure Performed Procedure Location: Day Surgery Unit Reason Performed: Postoperative Analgesia Requesting Provider: Juan Dumont Timeout Performed Timeout Performed: Yes Monitoring Used ECG, Blood Pressure and SpO2 Sterility Sterility: Hand Hygiene, Surgical Cap, Surgical Mask and Sterile Gloves Sedation Given During Procedure Sedation Given (Indicate Dose Given): No Sedation given Patient Mental Status Patient Mental Status: Awake Nerve Block 1st Nerve Block: Laterality: Right Block Type: Adductor Canal Needle / Catheter Used: 100mm SonoPlex II Local Anesthetic Bolus (Indicate Dose Given): Lidocaine used for local infiltration of skin and Bupivacaine 0.375% Dose:: 10 mL Additives (Indicate Dose Given): None Ultrasound: Sterile probe cover and gel used Ultrasound Image Saved?: Yes Nerve Stimulator: Not Used Paresthesia: None Procedure Tolerated: No Complications Procedure Outcome: Successful Performed By: Kalpesh Trotter
[2021-11-03] MEDS: ceFAZolin 2 GM/50 ML BAG IVPB (10:25)
[2021-11-03] MEDS: Bupivacaine 0.25% Pres-Free 30 ML VIAL (10:51)
[2021-11-03] MEDS: Normal Saline 50 ML (10:52)
[2021-11-03] MEDS: Ketorolac 30 MG/ML VIAL (10:52)
[2021-11-03] MEDS: HYDROmorphone 2 MG/ML VIAL IVP ×2 (12:35→12:45)
[2021-11-03] MEDS: Normal Saline 50 ML 10 ML (12:57)
--- NOTE | 2021-11-03 13:22 | W.ANESPOSTOP ---
Postoperative Evaluation Date, Time and Location Date Performed: 11/03/21 Time Performed: 13:22 Patient Location: Day Surgery Unit Vital Signs Most Recent Imported Vital Signs: Most Recent Vital Signs Temp Pulse Resp BP Pulse Ox 36.3 C L 70 22 161/92 H 94 11/03/21 13:10 11/03/21 13:10 11/03/21 13:10 11/03/21 13:10 11/03/21 13:10 Pain Score Most Recent Pain Score: Most Recent Pain Score Pain Level 5 11/03/21 13:10 Assessment Mental Status: Awake (Alert & Oriented to Patient Baseline) Airway and Respiratory Function: Patent airway with normal (patient baseline) respiratory exam Cardiovascular Function: Hemodynamically Stable Hydration Status: Adequately Hydrated Nausea & Vomiting: No Nausea or Vomiting Pain: Pain is tolerable per patient Peripheral Nerve Block: Regional nerve block not resolved at time of post operative discharge
[2021-11-03] MEDS: oxyCODONE 5 MG TAB PO (13:31)
--- NOTE | 2021-11-03 14:44 | IN_ITS ---
Date of service: 11/03/21 Time of Service: 14:44 PT Notes Visit Reasons: Right knee DJD Physical Therapy Day Surgery Initial Evaluation Date: 11/03/2021 Referring Doctor: ROQUE Salinas PT Orders: PT CONSULT: Status post Ortho surgery Precautions: WBAT on right LE with AD. Patient Profile/Admitting Diagnosis: Asael is a 60-year-old male degenerative joint disease of the right knee and is status post right total knee arthroplasty on postoperative day 0. PMHX: Surgical History Arthroplasty of knee (10/11/13) 10/11/13 left 11/03/17 LEFT Social History/Home Situation: Lives with nurse in a private home with 4 steps to enter with rails on both sides. Independent with all aspects of ADLs prior to surgery. Equipment Owned/DME: [facility] Subjective: Agreeable to PT consult. Denies pain, chest pain, and lightheadedness throughout session. Objective: General Observation: Walter wraps on right LE. Cryocuff on right knee. ANALY is on left leg. Mental Status: Alert and oriented x4 Pain: Reports 3?4/10 in the right knee ROM: Right Lower Extremity: Hip flexion WFL. Hip abduction WFL. Knee flexion 0 degrees to 95 degrees. Knee extension 95degrees to 0 degrees. Ankle dorsiflexion WFL. Ankle plantarflexion WFL. Left Lower Extremity: Hip flexion WFL. Hip abduction WFL. Knee flexion WFL. Ankle dorsiflexion WFL. Ankle plantarflexion WFL. Strength: Right Lower Extremity: Hip flexors 5/5. Hip abductors 5/5. Knee flexors 3-/5. Knee extensors 4-/5. Ankle dorsiflexors 5/5. Ankle plantarflexors 5/5. Left Lower Extremity:Hip flexors 5/5. Hip abductors 5/5. Knee flexors 5/5. Knee extensors 5/5. Ankle dorsiflexors 5/5. Ankle plantarflexors 5/5. Sensation: Intact as to pain and light pressure in bilateral lower extremities Bed Mobility/Transfers: Supine to sit independent Sit to stand supervision Stand to sit supervision Bed to chair supervision Gait: Instructed patient with level surface ambulation using front wheeled walker with step through gait pattern with supervision assist only. Denies pain, chest pain, and headache throughout session. Reported no increase in baseline pain level of 3?4/10. Balance: Static Sitting: Normal Dynamic Sitting: Normal Static Standing: Good Dynamic Standing: Fair Special Tests: Mobility Limitations Standardized Measure [facility] AM-PAC 6 clicks Basic Mobility Inpatient Short Form: Raw Score: 24 CMS Score: 0% deficit Informed Consent/Education: Patient instructed in purpose of PT consult. Education and training on initial set of exercises that can be done at home have been completed with patient. Assessment: Asael requires the use of a front wheel walker to maximize independence and reduce fall risk. Patient presents with clinical signs and symptoms consistent with current/admitting diagnoses that have resulted to mobility limitations and gait instability as demonstrated by the following impairment level findings: 1. Decreased strength to right knee major muscle groups 2. Impaired standing balance 3. Limitation of joint range of motion in right knee flexion Impairments are contributing to the following functional limitations: 1. Inability to safely ambulate without assistive device 2. Increase completion time for mobility ADL performance 3. Increased fall risk Patient is assessed as a 01970 moderate complexity based on the following: History: 52-year-old male with impairment level findings, functional limitations, and past medical history as indicated above Examination: Demonstrable impairment in strength, balance, and mobility level with underlying impairments and functional limitations as documented above Presentation: Evolving Decision Makin moderate complexity Goals: N/A. PT evaluation and 1-2 treatment sessions only for functional mobility tr aining using recommended AD and for HEP instruction. Plan of Care/Treatment Plan: N/A. PT evaluation and 1-2 treatment session only for functional mobility training using recommended AD and for HEP instruction. DISCHARGE RECOMMENDATIONS: [] Home with no services [] [] Home with services [specify] [X] Home with outpatient PT. Home when medically cleared by orthopedic surgeon. Outpatient PT services in order to facilitate return to independent community ambulation without an assistive device. [] SNF for continued rehabilitation [] [] Contact [facility] [] [] SNF versus LTC based on ability to participate and progress [] TREATMENT CODE/TIME: 09093 x 23 minutes beginning at 14:44 PM. Thank you for the opportunity to participate in the care of this patient. Anne Newby PT, DPT, CLT [facility] [place], [place]
--- NOTE | 2021-11-03 20:24 | ROE_ITS ---
Date of service: 11/03/21 Time of Service: 12:01 Operative Note Operative Note DATE OF PROCEDURE: 11/03/21 PRE-OP DIAGNOSIS: Right Knee Osteoarthritis POST-OP DIAGNOSIS: same PROCEDURE: Right Total Knee Replacement SURGEON: Juan Dumont COMMERCIAL DEVELOPMENT MANAGER: Inés Thompson ANESTHESIA TYPE: Spinal Refer to Anesthesia Record ESTIMATED BLOOD LOSS: 250 PATHOLOGY: none sent TOURNIQUET TIME: 0 COMPLICATIONS: None Patient was transported to: PACU Patient's condition: stable Implants: 1. Depuy Attune Cementless Cruciate Retaining Femoral Component, Size 6 2. Depuy Attune Cementless Rotating Platform Tibial Component, Size 6 3. Depuy Attune 6x6 CR/RP Poly 4. Depuy Attune Patellar Component, Size 38 Indications: I have seen Daryl in clinic for symptoms of knee arthritis, confirmed with radiographic findings. Daryl has exhausted nonoperative methods and was having significant limitations in daily function and desired better function and less pain. I discussed the technical details of a knee replacement. I explained the risks of the procedure to include, but not limited to, bleeding, infection, pain, stiffness, fracture, damage to nerves and vessels, damage to muscles and tendons, loosening, need for repeat procedure, blood clot and cardiopulmonary demise. Despite these risks, Daryl elected to proceed. Findings: There was significant signs of arthritis throughout the knee. There is also quite a bit of deformity of the lateral femur, especially posteriorly. Procedure Description: Daryl was greeted in the preoperative holding area where the correct side was identified and marked. The consent was reviewed with the patient and signed. The history and physical was updated. All questions were answered. Preoperative medications were administered: Acetaminophen 1000mg, Celebrex 400mg, and Gabapentin 300mg. An adductor canal block was then administered by the anesthesia team in the PACU. Daryl was taken back to the operating room. A spinal anesthestic was then administered. The patient was placed into the supine position on the operating room table. A nonsterile tourniquet was placed high onto the leg but only used for cementing. Posts were placed for positioning during the procedure. All bony prominences were well padded. Prophylactic antibiotics in the form of Cefazolin were administered. 1g of Tranxemic Acid was given intravenously within 30 minutes of incision. The right leg was then prepped with Chloraprep and draped in a standard fashion with impervious stockinette. A second prep with Chloraprep was performed prior to application of Iodine impregnated skin protection. A timeout to confirm correct identity, side and site, procedure, allergies, anesthesia, and medical concerns was performed. With the knee in some flexion, a midline incision was made overlying the knee. Full thickness skin flaps were raised once the extensor mechanism was encountered. These were raised medially and laterally. Any bleeding was controlled with electrocautery. Once the extensor mechanism was fully exposed, a medial parapatellar arthrotomy was performed in a flexed position. All bleeding from the arthrotomy and the geniculate arteries was coagulated. A medial subperiosteal peel was performed with electrocautery to the midcoronal plane. The fat pad was removed while keeping the patellar tendon protected. The anterior distal femur synovium was removed for later visualization. The ACL and PCL were resected and the anterior horn of the lateral meniscus was transected. The knee was then flexed with the patella everted. Large osteophytes from the tibia were removed. Large osteophytes from the femur were removed. There is notable deformity of the lateral femur with osteophytes present in all 3 compartments. Using a step drill, and based on preoperative templating, the femoral canal was entered. This was done with a step drill without any difficulty. The intramedullary distal femoral cut guide was inserted, set to a 6 degree valgus cut and 9mm cut thickness. The distal femoral cut guide was then held in position and pinned. With the soft tissues protected, the distal cut was performed. This was passed over a few times to ensure a planar cut. I then turned attention to the tibia. The extramedullary guide was placed onto the leg. The distal aspect was slid medial to adjust for position of center of ankle and stay in line with shaft of the tibia. Approximately 3-5 degrees of posterior slope was kept in the proximal cutting guide. The center of the guide was aligned with the PCL. The stylus was used to assess cut thickness. Based on preoperative planning and the deformity within the knee both medially and laterally a balance cut was made involving about 5 to 6 mm of each compartment. This was then held in position and pinned into place with 2 additional pins and a cross pin for stability. The medial and lateral collateral ligaments were protected and the cut was performed. With this completed, it was assessed and noted to be of appropriate dimensions. The guide was removed. A spacer block was inserted and the knee was brought into extension. The 6mm spacer block provided full extension, without hyperextension and with stability of both the medial and lateral collateral ligaments was assessed. The pins from the femur and the tibia were then removed. The distal femur was then sized. The anterior stylus was placed onto the lateral ridge of the anterior femur. This indicated a size 6 femur. The external rotation of the guide was adjusted to 5 degrees to match the epicondylar axis, perpendicular to Kamila?s line. The 4-in-1 cutting guide was the placed. The posterior medial femur cut was evaluated and appeared of good thickness. The spacer block was inserted underneath the cutting guide and stability was confirmed in 90 degrees of flexion. An lucio wing was used to confirm appropriate position of the anterior cut to avoid notching. This cuttin g guide was ensured to be flush on the cut surface and then pinned into place with headed pins. While protecting the soft tissues, quad tendon, and collateral ligaments, the anterior and posterior cuts were performed with a saw. The central two pins were removed and the posterior and anterior chamfers were cut next. The notch-cutting guide was placed. This was pinned to lateralize the femoral component as much as possible while keeping it flush on the cut surface. This was then pinned into position. A reciprocating saw was used to make the notch cut. A rasp smoothed the cut surfaces. The medial and lateral menisci were removed. A trial femoral component was then inserted, impacted down to the cut surfaces, and the lug holes were drilled. A provisional trial tibial component was placed and the knee was brought through range of motion. There was noted to be excellent extension and flexion. There was no significant instability. The patella was tracking without thumbs. A size 6mm polyethylene component provided the best range of motion and stability with less than 2mm gapping with medial and lateral stress and full extension without significant hyperextension. The tibial cut surface was fully exposed. The tibia was then sized as a 6. The tibia had been previously marked during trialing to correspond to the center of the tibial component to help with rotation. The trial was aligned to this eva, approximately rotated to the medial 1/3rd of the tibial tubercle. The trial was pinned into place. The tibia was prepared with a reamer and a keel punch and lug holes. The knee was then brought into extension and the patella was measured as 28mm. Using the patellar clamp and cut guide, this was resected to a flat surface with at least 13mm of thickness remaining. The size 38 patella fit the best. This was oriented and then clamped into position. The lugs were drilled. The trial components were removed. The final components were opened on the back table. The periosteal and capsular tissues, especially posteriorly, around the knee were then systematically injected with a periarticular cocktail consisting of 50cc 0.25% Marcaine, 30mg Ketorolac, 20cc of Exparal and 50cc of injectable saline. The knee was thoroughly irrigated with a pulse lavage and dried. Irrisept was also used to irrigate the tissues. On the back table, with the implants opened, the cement was mixed. One batch of high viscosity cement was prepared with vacuum assistance. After the cement was ready a small amount was placed on the cut surface of the patella and the pa tellar button was clamped into position and held. While the cement was hardening, the cementless knee components were placed. Starting with the tibial component, the tibia was subluxed anteriorly and the lug holes of the component were lined up. The tibia was then impacted with an impactor and mallet until the tibial component was in contact with the tibia. The final polyethylene component was inserted. Then, the femoral component was inserted. The lug holes were aligned and the component was impacted into position. The knee was irrigated with Irrisept chlorhexadine solution. This was allowed to sit in the knee for 3 minutes. After the cement had finally cured, approximately 15min, the clamp was removed from the patella and the knee was taken through range of motion. The patella was tracking with a no-thumbs technique. The capsule was then reapproximated with a No. 1 Vicryl at multiple locations. The capsule was finally closed with a No. 2 Stratafix, barbed suture. The s econd dosing of 1g TXA was started. Deep tissues were then reapproximated with 0 Vicryl and 2-0 Vicryl. The skin was closed with a running 3-0 Monocryl in a subcuticular fashion. This was reinforced with skin glue. A Mepilex silver dressing was applied along with a [id number] ZAINA wrap. A CryoCuff was applied. Daryl was transferred to the hospital bed without difficulty an suffering no apparent complication. Daryl has a good prognosis. Physical therapy will start today and without restrictions, weight-bearing as tolerated. Aspirin 81mg BID will be used for DVT prophylaxis.
== END 2021-11-03 15:23 | disposition home or self-care (01) ==
LOC: SUR 07:41
PROVIDERS: PCP Family Medicine; Visit Provider Student in an Organized Health Care Education/Training Program
PROC: (CPT 27447; principal; 2021-11-03 09:45)
DX: M17.11 Unilateral primary osteoarthritis, right knee (principal); G89.18 Other acute postprocedural pain; K21.9 Gastro-esophageal reflux disease without esophagitis; E11.9 Type 2 diabetes mellitus without complications
CPT/HCPCS: 27447; C1776; 76942; 97162; J0690; J1100; J1885; J2250; J2405; J2704

== ENCOUNTER 2021-11-16 09:40 | Outpatient (CLI) | payer OTHER, SELFPAY ==
--- NOTE | 2021-11-16 08:15 | DI.RAD_ITS ---
Exam(s) XR KNEE RT 1V XR STANDING ALIGNMENT EXAM: XR STANDING ALIGNMENT CLINICAL HISTORY: 1ST POST OP R TKA. TECHNIQUE: 2D digital imaging was performed. Standing AP views were performed from the pelvis throu gh the ankles. COMPARISON: CR BONE LENGTH from 11/16/2017 CR XR KNEE RT 1V from 11/16/2021 FINDINGS: BONES: No acute fracture is present. No bony destructive lesion is seen. JOINTS: Knees: Bilateral total knee prostheses are unremarkable. No abnormal surrounding lucencies. The ankle and hip joints are unremarkable. SOFT TISSUE: Normal. IMPRESSION: Bilateral total knee prostheses. No significant leg length discrepancy. DATA REPOSITORY: RADIATION DOSE DELIVERED:
== END 2021-11-16 09:41 | disposition home or self-care (01) ==
LOC: DIORS 09:41
PROVIDERS: PCP Family Medicine; Referring Provider Family Medicine; Visit Provider Physician Assistant
DX: Z96.651 Presence of right artificial knee joint (principal); Z47.1 Aftercare following joint replacement surgery
CPT/HCPCS: 73560; 77073

== ENCOUNTER 2021-12-14 01:13 | Outpatient (CLI) | payer OTHER, SELFPAY ==
--- OUTSIDE RECORDS SUMMARY | 2021-12-14 01:14 | XMS_ITS ---
:1960 Author Care Team Providers Name Role Phone KENDY MURILLO MD Primary Care Provider [phone] [facility] MED[facility] RECORDS Primary Care Provider [phone] Allergies Code Code System Name Reaction Severity Status Onset NKDA ? Medications Name Status Start Date Stop Date ? ? amlodipine 5 mg tablet Active ? Not avail able Take 10 mg every day by oral route. azithromycin 250 mg tablet Completed ? 10/29 TAKE 2 TABLETS (500 MG) BY ORAL ROUTE O NCE DAILY FOR 1 DAY THEN 1 TABLET (250 MG) BY ORAL ROUTE ONCE DAILY FOR 4 DAYS losartan 100 mg-hydrochlorothiazide 12.5 mg tablet Active ? Not available Take 1 tablet every day by oral route. metformin 1,000 mg tablet Active ? Not av ailable Take 1 tablet twice a day by oral route. omeprazole 20 mg capsule,delayed release Active ? Not available Take 1 capsule every day by oral route. prednisone Completed ? 10/29/2019 40mg daily ropinirole 1 mg tablet Completed ? 9 take 1 PO 2-3 hours before bedtime zolpidem 5 mg tablet Completed ? 07/05/2019 take 1-2 PO night of sleep study PRN Problems Name Status Onset Date Source ? Diabetes Mellitus Active 04/04/2019 ? Obesity Active 04/04/2019 ? Upper Respiratory Infection Active 04/04/2019 ? Snoring Active 04/05/2019 ? Periodic Limb Movement Disorder Active 07/05/2019 ? Obstructive Sleep Apnea Syndrome Active ? ? Hypertensive Disorder Active ? ? Procedures Date Name Performed by ? 04/05/2019 Polysomnogram Information not avai lable Results Lab Results None recorded. Past Encounters 10/23/2020 Obstructive Sleep Apnea Syndrome Angelic Gonzalez AIR HOIST OPERATOR: [address] [place] [phone], Ph. Social History Tobacco Smoking Status Never Smoker Vaccine List None recorded. Plan of Care Reminders Provider Appointments None ? ? recorded. Lab None ? ? recorded. Referral None ? ? recorded. Procedures None ? ? recorded. Surgeries None ? ? recorded. Imaging None ? ? recorded. Vitals 10/23/2020 08:00AM Office 30 Height Weight BMI Blood Pressure 177.8 cm 113.4 kg 35.9 kg/m2 130/68 mm[Hg] 10/29/2019 08:30AM Office 30 Height Weight BMI Blood Pressure 177.8 cm 114.31 kg 36.2 kg/m2 134/78 mm[Hg] 07/05/2019 02:45PM Office 30 Height Weight BMI Blood Pressure 177.8 cm 114.35 kg 36.2 kg/m2 130/80 mm[Hg] 05/01/2019 02:00PM Office 30 Height Blood Pressure 177.8 cm 140/78 mm[Hg] 04/05/2019 02:30PM Office 15 Height Weight BMI Blood Pressure 177.8 cm 113.85 kg 36 kg/m2 140/82 mm[Hg]
[2021-12-14 15:05] LABS: COVID-19 PCR Negative (Negative)
[2021-12-14 17:25] LABS: Source Nasal/Nares
== END 2021-12-14 01:14 | disposition home or self-care (01) ==
LOC: LBO 01:13
PROVIDERS: PCP Family Medicine; Visit Provider Student in an Organized Health Care Education/Training Program
DX: Z20.822 Contact with and (suspected) exposure to COVID-19 (principal); Z01.818 Encounter for other preprocedural examination
CPT/HCPCS: 87635

== ENCOUNTER 2021-12-15 08:31 | Day surgery (SDC) | payer OTHER, SELFPAY ==
[2021-12-15] VITALS (12 sets, daily range): BP systolic 112–172; BP diastolic 56–89; PULSE 63–85; RESP 16–24; TEMP 35.9–37.2; O2SAT 94–99; BMI 33.6
--- NOTE | 2021-12-15 06:46 | W.PM.DSUDISC ---
Discharge Plan Disposition Patient Disposition: HOME Condition: Good Discharge Details Reason For Visit: Right RTC Repair Attending Provider: Juan Dumont Primary Care Provider: Evangelist Amin Home Meds and New Rx's Prescriptions: New aspirin 81 mg tablet,delayed release (DR/EC) 81 mg PO BID Qty: 60 0RF acetaminophen 500 mg capsule 1,000 mg PO Q8H PRN PRNQty: 90 0RF oxycodone 5 mg tablet 5 mg PO Q4H PRNQty: 18 0RF Continued c-pap inhalation HS 0RF amlodipine 10 mg tablet 10 mg PO DAILY Qty: 90 4RF omeprazole 20 mg capsule,delayed release(DR/EC) 20 mg PO DAILY Qty: 90 3RF celecoxib [Celebrex] 200 mg capsule 200 mg PO BID Qty: 30 0RF atorvastatin 20 mg tablet 20 mg PO QPM Qty: 90 3RF losartan-hydrochlorothiazide 100-12.5 mg tablet 1 tab PO DAILY Qty: 90 3RF Jardiance 10 mg tablet 10 mg PO DAILY Qty: 90 3RF metformin 1,000 mg tablet 1,000 mg PO BID Qty: 180 3RF oxycodone 5 mg tablet 5 mg PO BID MDD 10 mg PRN (Reason: severe post-operative pain) Qty: 14 0RF Rx Instructions: Take one tablet up to every 12 hours as needed for severe pain acetaminophen 500 mg tablet 1,000 mg PO Q8H PRN Qty: 90 0RF Rx Instructions: Take two tablets up to every 8 hours as needed for pain docusate sodium [Colace] 100 mg capsule 100 mg PO BID Qty: 30 0RF gabapentin 300 mg capsule 300 mg PO QHS Qty: 14 0RF Rx Instructions: Take one tablet at bedtime Discharge Instructions Stand Alone Forms: Tim Billy w/RCR Referrals: Juan Dumont MD [ [facility] STAFF PHYSICIAN] - Equipment/Supplies: Sling Activity:: Activity as Tolerated Remove Dressings/Wound Care:: 72 hours Shower/Bathe:: 72 hours Diet:: As Tolerated Discharge Orders Discharge Orders: Discharge Order (Routine); Ordered 12/15/21 Ordered By: Paola Wiley
--- NOTE | 2021-12-15 09:18 | W.ANESPRE ---
General Info Date of Service Date Performed: 12/15/21 Height: 5 ft 10.5 in Weight: 107.955 kg Body Mass Index (BMI): 33.6 Surgical Procedure: Operation Date: 12/15/21 11:55 Proposed Procedure Side Surgeon p Shoulder Rotator Cuff Arthroscopic Right Juan Dumont MD Meds Allergies and Home Medications Allergies Allergy/AdvReac Type Severity Reaction Status Date / Time No Known Allergies Allergy Verified 12/15/21 09:05 Home Medication Medication Instructions Recorded c-pap INHALATION HS 06/12/19 atorvastatin 20 mg tablet 20 mg PO QPM #90 tab 12/17/20 losartan 100 1 tab PO DAILY #90 tab 01/22/21 mg-hydrochlorothiazide 12.5 mg tablet empagliflozin 10 mg tablet 10 mg PO DAILY #90 tab 04/02/21 (Jardiance) metformin 1,000 mg tablet 1,000 mg PO BID #180 tab-cap 06/24/21 amlodipine 10 mg tablet 10 mg PO DAILY #90 tab 06/26/21 omeprazole 20 mg capsule,delayed 20 mg PO DAILY #90 tab-cap 06/26/21 release acetaminophen 500 mg tablet 1,000 mg PO Q8H PRN #90 tab 11/03/21 docusate sodium 100 mg capsule 100 mg PO BID #30 cap 11/03/21 (Colace) gabapentin 300 mg capsule 300 mg PO QHS #14 cap 11/03/21 oxycodone 5 mg tablet 5 mg PO BID PRN #14 tab MDD 10 mg 12/07/21 celecoxib 200 mg capsule (Celebrex) 200 mg PO BID #30 cap 12/11/21 acetaminophen 500 mg capsule 1,000 mg PO Q8H PRN PRN #90 cap 12/15/21 aspirin 81 mg tablet,delayed 81 mg PO BID #60 tab 12/15/21 release oxycodone 5 mg tablet 5 mg PO Q4H PRN #18 tab 12/15/21 Current Visit Medications: Current Medications Generic Name Dose Route Start Last Admin Trade Name Freq PRN Reason Stop Dose Admin Acetaminophen 1,000 mg 12/15/21 14:00 Acetaminophen 500 Mg Tab PO TID PASCUAL Aspirin 81 mg 12/15/21 20:00 Aspirin E.C. 81 Mg Tabec PO BID PASCUAL Celecoxib 200 mg 12/15/21 20:00 Celecoxib 200 Mg Cap PO BID PASCUAL Hydromorphone HCl 0.5 mg 12/15/21 06:44 Hydromorphone 2 Mg/Ml Vial IVP Q2H PRN PRN Ringer's Solution 1,000 mls @ 80 mls/hr 12/15/21 06:00 IV 01/13/22 23:59 INFUSION PASCUAL Cefazolin Sodium/Dextrose 2 gm in 50 mls @ 100 mls/hr 12/15/21 06:00 Ancef Duplex IVPB 01/13/22 23:59 PREOP PASCUAL Ondansetron HCl 4 mg/ Sodium 52 mls @ 200 mls/hr 12/15/21 06:42 Chloride IVPB Q6H PRN PRN Cefazolin Sodium/Dextrose 1 gm in 50 mls @ 100 mls/hr 12/15/21 16:00 Ancef Duplex IVPB 12/16/21 08:29 Q8H PASCUAL IV Miscellaneous Supplies 1 each 12/15/21 06:00 Iv Access IV 01/13/22 23:59 DIRECTED PASCUAL Oxycodone HCl 0 mg 12/15/21 06:44 Oxycodone 5 Mg Tab PO Q3H PRN PRN Pain Sodium Chloride 0 ml 12/15/21 06:00 Normal Saline Flush 10 Ml Syr IV 01/13/22 23:59 PRN PRN Sodium Chloride 0 ml 12/15/21 06:00 Normal Saline 10 Ml Vial IJ 01/13/22 23:59 DIRECTED PRN Sterile Water 0 ml 12/15/21 06:00 Water,Injection,Sterile 10 Ml Vial IJ 01/13/22 23:59 DIRECTED PRN PFSH Active Problems Active Problems: Problem Status Onset Code Alcohol intake above recommended sensible limits Z72.89 GERD (gastroesophageal reflux disease) K21.9 Increased body mass index R63.8 Knee pain, left M25.562 Post-traumatic osteoarthritis of right knee 12/13/16 M17.31 Type 2 diabetes mellitus without complication 03/26/16 E11.9 Ingrown toenail L60.0 Well adult Viral URI with cough J06.9, B97.89 Diabetes mellitus E11.9 Hypertension I10 History of arthroscopy of knee 10/11/13 Z98.890 Fracture of left ankle S82.892A Obesity E66.9 Right rotator cuff tendonitis M75.81 Bursitis of right shoulder M75.51 Lumbago without sciatica ~10/2019 M54.5 Chest pain R07.9 Osteoarthritis of right knee M17.11 Right rotator cuff tear M75.101 Status post total right knee replacement 11/03/21 Z96.651 Medical History Medical History CHRISTELLE (obstructive sleep apnea) Surgical History Surgical History History of total knee replacement (TKR) Status post total left knee replacement DOS: 11/03/17 Dr. Dumont Tobacco Smoking/Tobacco Use Status: Never Passive smoking exposure: Yes Alcohol Alcohol Intake: current Alcohol intake frequency: 0-2 drinks per day Alcohol type: beer and hard liquor Substance Use Substance use: Never Substance use type: does not use Vital Signs and Lab Results Lab Results Blood Type / Crossmatch: No Data to Display Complete Blood Count: No Data to Display Complete Metabolic Panel: No Data to Display Liver Function Panel: No Data to Display Coagulation Panel: No Data to Display Cardiac Panel: No Data to Display Arterial Blood Gas: No Data to Display Venous Blood Gas: No Data to Display Pancreas Panel: No Data to Display Thyroid Panel: No Data to Display Infectious Disease: Coronavirus (COVID-19)(PCR) Negative (Negative) 12/14/21 09:37 12/14/21 Coronavirus 2019 Source Nasal/Nares 12/14/21 09:37 12/14/21 Blood Cultures: No Data to Display Toxicology Panel: No Data to Display Imaging and Studies Imaging and Studies Study information below may be from another EMR and interpreted by another provider. Please see original notes in EMR for more complete details. Stress Test Summary: 12/2020: EF 63%, no wma, no evidence of ischemia. 11 mets, no ekg changes suggestive of ischemia. Anesthesia Assessment and Plan Anesthesia History Personal History: No History of Anesthesia Complications Family History: No Family History of Anesthesia Complications Exercise Tolerance Exercise Tolerance: Metabolic Equivalents>4 Pertinent Negatives Pertinent Negatives: No Symptoms of GERD, No Major Cardiovascular Symptoms or Complaints, No Major Pulmonary Symptoms or Complaints and No History of CVA/TIA Cardiac & Pulmonary Exam Cardiac Exam: Normal S1/S2 Heart Sounds Pulmonary Exam: Clear Bilateral Breath Sounds Implantable Cardiac Device Does patient have a Pacemaker or an ICD?: No Airway Exam Known Difficult Airway: No Mallampati Class: 3 Mouth Opening: Narrow (< 3cm) Thyromental Distance: Greater than 3 cm Neck Range of Motion: Full ROM Neck Circumference: Thick Teeth Condition: Normal Dentition ASA Classification ASA Score: ASA 2 Emergency Case?: No NPO Status NPO Status: NPO Clears >2 hours, Solids >8 hours Anesthesia Plan Resuscitation Status: Full Code Anesthesia Technique: General Anesthesia Airway Planned: Endotracheal Tube Pain Management: Surgeon and patient request nerve block Monitors Used: Standard Monitors Preoperative Comments:: Gerd well controlled with omeprazole. Black coffee at 0530 and water with medications.
[2021-12-15] MEDS: Lactated Ringers 1,000 ML 80 ML IV (09:35)
[2021-12-15] MEDS: ceFAZolin 2 GM/50 ML BAG IVPB (11:07)
--- NOTE | 2021-12-15 11:17 | W.ANESNERVE ---
Nerve Block Single Injection Procedure Date and Time Date Performed: 12/15/21 Procedure Start: 10:31 Location Where Procedure Performed Procedure Location: Day Surgery Unit Reason Performed: Postoperative Analgesia Requesting Provider: Juan Dumont Timeout Performed Timeout Performed: Yes Monitoring Used ECG, Blood Pressure and SpO2 Sterility Sterility: Hand Hygiene, Surgical Cap, Surgical Mask, Sterile Gloves, Eye Protection and Chlorhexidine Sedation Given During Procedure Sedation Given (Indicate Dose Given): Versed IV Dose:: 2 mg Patient Mental Status Patient Mental Status: Awake Nerve Block 1st Nerve Block: Laterality: Right Block Type: Supraclavicular Needle / Catheter Used: 100mm SonoPlex II Local Anesthetic Bolus (Indicate Dose Given): Lidocaine used for local infiltration of skin, Injected in 3-5ml increments after negative blood aspiration, Bupivacaine 0.5% Dose:: 10 ml and Exparel Dose:: 10 exparel Additives (Indicate Dose Given): Normal Saline (for hydrodissection) Ultrasound: Sterile probe cover and gel used Ultrasound Image Saved?: Yes Nerve Stimulator: Not Used Paresthesia: None Procedure Tolerated: No Complications and Patient tolerated well Procedure Outcome: Successful Performed By: Joel Guerrero
[2021-12-15] MEDS: EPINEPHrine 30 MG/30 ML VIAL (11:26)
[2021-12-15] MEDS: Bupivacaine 0.5% Pres-Free 30 ML VIAL (11:27)
[2021-12-15] MEDS: Normal Saline 10 ML VIAL IJ (13:50)
[2021-12-15] MEDS: HYDROmorphone 2 MG/ML VIAL IVP ×2 (13:50→14:15)
--- NOTE | 2021-12-15 14:35 | W.ANESPOSTOP ---
Postoperative Evaluation Date, Time and Location Date Performed: 12/15/21 Time Performed: 14:35 Patient Location: PACU Vital Signs Most Recent Imported Vital Signs: Most Recent Vital Signs Temp Pulse Resp BP Pulse Ox 36.9 C 70 16 135/68 94 12/15/21 14:25 12/15/21 14:25 12/15/21 14:25 12/15/21 14:25 12/15/21 14:25 Pain Score Most Recent Pain Score: Most Recent Pain Score Pain Level 4 12/15/21 14:25 Assessment Mental Status: Awake (Alert & Oriented to Patient Baseline) Airway and Respiratory Function: Patent airway with normal (patient baseline) respiratory exam Cardiovascular Function: Hemodynamically Stable Hydration Status: Adequately Hydrated Nausea & Vomiting: No Nausea or Vomiting Pain: Pain is tolerable per patient Peripheral Nerve Block: Regional nerve block not resolved at time of post operative discharge
[2021-12-15] MEDS: oxyCODONE 5 MG TAB PO (14:53)
--- NOTE | 2021-12-15 22:05 | ROE_ITS ---
Operative Note Operative Note DATE OF PROCEDURE: 12/15/21 PRE-OP DIAGNOSIS: Right Rotator Cuff Tear POST-OP DIAGNOSIS: same (Right Rotator Cuff Tear, Right Superior Labral Tear, Right Longitudinal Biceps Tear, Right Subacromial Impingement) PROCEDURE: - Arthroscopic Rotator Cuff Repair - Extensive debridement of anterior and posterior glenohumeral joint and rotator cuff - Sub-pectoral biceps tenodesis - Subacromial Debridement with Acromioplasty SURGEON: Juan Dumont FIELD TALENT QUALIFICATION SPECIALIST: Paola Wiley Refer to Anesthesia Record ESTIMATED BLOOD LOSS: 0 PATHOLOGY: none sent COMPLICATIONS: None Patient was transported to: PACU Patient's condition: stable Indications: I have seen Daryl in clinic for a painful shoulder. Pathology was confirmed based on MRI and exam findings. Nonoperative measures were exhausted but disability and pain persisted. I discussed shoulder arthroscopy and procedures. I reviewed the risks of the procedures to include, but not limited to, bleeding, infection, pain, stiffness, damage to nerves or vessels, recurrence, hardware failure, blood clot. Despite these risks, the patient elected to proceed. Findings: A diagnostic arthroscopy was performed with the following findings: Articular Side - Glenohumeral Joint: No significant cartilage changes - Labrum: Degenerative tearing of the labral attachment from 11 to 1 o'clock - Cuff: Complete tear of the supraspinatus with some partial involvement of the anterior infraspinatus - Biceps: Longitudinal tear intra-articularly and some inflammatory change Subacromial Side - Bursal: Thickened inflammatory tissue - Rotator Cuff: Complete tear of the supraspinatus - Large down sloping anterolateral acromial spur Procedure Description: Daryl was greeted in the preoperative holding area where the correct side was identified and marked. The consent was reviewed with the patient and signed. The history and physical was updated. All questions were answered. He was taken back to the PACU for administration of an intrascalene nerve block. Daryl was then taken to the operating room. The patient was placed into the supine position on the operating room table. A general anesthetic was administered. Daryl was then positioned in the beach chair position. All bony prominences were well padded. The head was placed in a foam loft worker head in a neutral position. Prophylactic antibiotics in the form of Cefazolin were administered. The right arm/shoulder was then prepped with Chloraprep and draped in a standard fashion with stockinette and shoulder drape. A timeout to confirm correct identity, side and site, procedure, allergies, anesthesia, and medical concerns was performed. The arm was placed into a pneumatic vidal, [id number]. The shoulder arthroscopy was then performed. The glenohumeral joint was injected with 20 cc of normal saline with good flow back. A standard posterior portal was made and the joint was entered atraumatically with a blunt arthroscope. Once inside we had good visualization of the structures of the glenohumeral joint. An anterior portal was established with spinal needle localization. A 6.5 mm cannula was inserted. A probe was then used to perform a diagnostic arthroscopy. There is noted to be no significant cartilage damage of the glenoid humeral joint. The labrum was grossly intact until further inspected with a probe which showed that there was tearing from his attachment to the glenoid by 2 to 3 mm in depth from the lateral to medial direction. This involved the labrum from about 11:00 to 1:[address] to the base attachment of the biceps. There were no loose bodies in the inferior pouch. The superior rotator cuff was torn within the crescent yet the cable remained intact The biceps tendon had a longitudinal tear within its intra-articular portion. There is also notable inflammatory changes in the groove The subscapularis was intact. The biceps tendon was released with electrocautery and in plane with the labrum. I used a shaver to debride the labral tearing and to roughen the glenoid surface at its attachment to the labrum. I also debrided the tearing of the supra rotator cuff from within the joint. I also utilized the electrocautery to release some of the rotator interval and to further debride any inflammatory tissue in the joint. The biceps tenodesis was then performed. With the arm and some slight external rotation and abduction, the pectoralis major tendon was identified. A 2 cm incision was made overlying the insertion to the humerus. Sharp dissection was carried onto the skin. Blunt dissection was carried down to the fascia the biceps musculature. This was entered with a tenotomy scissors. The biceps groove was palpable and the biceps tendon was palpable. It was withdrawn from the wound using Allis clamp and finger dissection. Once the biceps tendon was out of the arm the biceps groove was prepared using a rasp. A Mitek Lupine anchor was inserted into the biceps groove at the level of the pectoralis major insertion. This was tested to make sure had excellent fixation into the bone. Using a free needle I then placed a locking Krak?w stitch and each side of the biceps tendon using one limb from each suture at the level of the muscular tendinous junction and moving proximally. Excess tendon was then cut. Using the free suture limb I then shuttled the tendon down to the prepared surface of the humerus. It laid flat against the humerus. It was at the level of the pectoralis major tendon. The suture limbs were then tied. The wound was irrigated. This area was injected with 0.25% bupivacaine. The subcutaneous tissue was reapproximated with a 2-0 Vicryl. The arthroscope was then inserted into the subacromial space. The 6.5 mm cannula was placed lateral to the CA ligament. The CA ligament was recessed for visualizaiton. A complete bursectomy is performed anteriorly, posteriorly, and laterally with electrocautery and shaver. There was a notable downward sloping anterolateral acromion. I then created 2 lateral portals. One anterior lateral and one posterior lateral. From the anterolateral portal I then visualized the spur once again which was downsloping. Used a asmita to resect the spur and planed with the underside of the acromion. With this completed, there was excellent exposure of the rotator cuff. The bursal side rotator cuff was identified with a clear tear of the supraspinatus tendon. I used a shaver to debride the edges of the tendon. I also removed any excess tissue from the tuberosity. Use a shaver to debride this tissue from the tuberosity and open up the bone channels. There is a crescent type tear with some slight involvement of the anterior portion under spinatus. I used a tissue grabber to manipulate the tendon to identify his location onto the tuberosity. Once this was fully identified then proceeded with fixation of the rotator cuff using a Flower seal technique. 2 Medial Row anchors were placed. These were 4.5 mm Flower tape Mitek Healix anchors. Once these were placed I then used a loop suture to pass the sutures anteriorly and posteriorly outside the shoulder I then tied one limb of each of the sutures from each anchor outside and shuttled them back down. This created a bridging suture across the medial row. This was shuttled down to was tight against the tendon. This was inspected and showed to completely close off visualization in the joint reapproximating the medial tissue to the medial footprint. I then placed an anterior lateral anchor. This was a 4.75 mm knotless anchor. One of the tapes from each of the anchors medially and then the remnant anterior suture line were placed into this anchor seated into the bone off the tuberosity. This had excellent reapproximation of the tendon onto the tuberosity. Likewise, a posterior lateral anchor was done incorporating 1 tape suture from each of the anchors and the remnant suture limb from the posterior anchor. This was seated into the lateral row anchor and against the tuberosity. Suture limbs were then cut. This was inspected fully. There is no dogear. There is excellent reapproximation of the tendon onto the tuberosity. There was a small section between the anterior interval tissue and the leading edge of the supraspinatus which I reapproximated with a single #2 Ortho cord suture. The scope equipment was removed from the shoulder. Excess fluid was evacuated. The portal sites were closed with subcuticular Monocryl. Wounds were dressed with Steri-Strips followed by 4 x 4 gauze, ABD, and Medipore tape. He was placed in a sling. The patient tolerated the procedure well and was returned to the PACU in a stable condition suffering no known complication.
== END 2021-12-15 16:15 | disposition home or self-care (01) ==
LOC: SUR 08:32
PROVIDERS: PCP Family Medicine; Visit Provider Student in an Organized Health Care Education/Training Program
PROC: (CPT 29827; principal; 2021-12-15 11:45)
DX: M75.101 Unspecified rotator cuff tear or rupture of right shoulder, not specified as traumatic (principal); M75.21 Bicipital tendinitis, right shoulder; M75.41 Impingement syndrome of right shoulder; I10 Essential (primary) hypertension; K21.9 Gastro-esophageal reflux disease without esophagitis
CPT/HCPCS: 29827; 29826; 29823; 23430; 76942; J0690; J1100; J2001; J2250; J2370; J2405

== ENCOUNTER 2022-03-09 02:11 | Outpatient (CLI) | payer OTHER, SELFPAY ==
--- OUTSIDE RECORDS SUMMARY | 2022-03-09 02:13 | XMS_ITS ---
:1960 Author Care Team Providers Name Role Phone KENDY MURILLO MD Primary Care Provider [phone] [facility] Primary Care Provider [phone] Allergies Code Code System Name Reaction Severity [...] 10/23/2020 Obstructive Sleep Apnea Syndrome Angelic Gonzalez CUSTOMER SERVICE VOICE: [address] [place] [phone], Ph. Social History Tobacco Smoking Status Never [...]
[2022-03-09 12:53] LABS: COMMENT (LAB VIEW ONLY) 34.15 mg/dL; Microalb ug/mg Crea 59.7 ug/mg Cr
[2022-03-09 23:00] LABS: PSA, Screening 0.3 ng/mL (<=3.5)
== END 2022-03-09 02:12 | disposition home or self-care (01) ==
LOC: LOS 02:11
PROVIDERS: PCP Family Medicine; Visit Provider Family Medicine
DX: E11.9 Type 2 diabetes mellitus without complications (principal); Z12.5 Encounter for screening for malignant neoplasm of prostate
CPT/HCPCS: 36415; 84153; 82043; 82570

== ENCOUNTER 2022-11-08 11:00 | Outpatient (CLI) | payer OTHER, SELFPAY ==
--- NOTE | 2022-11-08 07:45 | DI.RAD_ITS ---
Exam(s) XR KNEE RT 2V AP,LAT EXAM: XR KNEE RT 2V AP,LAT INDICATION: s/p right TKA. COMPARISON: CR XR KNEE RT 1V from 11/16/2021 TECHNIQUE: 2D digital imaging was performed. Two views. FINDINGS: There has been no change in the alignment of the total knee prosthesis. No suspicious bony lucencies are seen. DATA REPOSITORY: RADIATION DOSE DELIVERED:
== END 2022-11-08 11:01 | disposition home or self-care (01) ==
LOC: DIORS 11-09 08:37
PROVIDERS: PCP Family Medicine; Visit Provider Physician Assistant
DX: Z96.651 Presence of right artificial knee joint (principal)
CPT/HCPCS: 73560

== ENCOUNTER 2023-03-10 18:14 | Outpatient (REF) | payer OTHER, SELFPAY ==
[2023-03-09 22:09] LABS: COMMENT (LAB VIEW ONLY) 109.85 mg/dL
== END 2023-03-10 18:15 | disposition home or self-care (01) ==
LOC: LBN 18:14
PROVIDERS: PCP Family Medicine; Visit Provider Family Medicine
DX: E11.9 Type 2 diabetes mellitus without complications (principal)
CPT/HCPCS: 82043; 82570

== ENCOUNTER 2024-03-22 05:15 | Outpatient (CLI) | payer OTHER, SELFPAY ==
[2024-03-22 13:03] LABS: CREATININE 0.9 mg/dL (0.70-1.30); Calculated LDL 52 mg/dL (<100); Cholesterol 125 mg/dL (<200); Estimated GFR 97.17 (mL/min/1.73m2); HDL Cholesterol 56 mg/dL (40-60); Potassium 3.9 mmol/L (3.5-5.1); Triglyceride 89 mg/dL (<150)
== END 2024-03-22 05:16 | disposition home or self-care (01) ==
LOC: LOS 05:15
PROVIDERS: PCP Family Medicine; Visit Provider Family Medicine
DX: I10 Essential (primary) hypertension (principal); E78.5 Hyperlipidemia, unspecified
CPT/HCPCS: 36415; 80061; 82565; 84132

== ENCOUNTER 2024-06-13 13:00 | Emergency (ER) | payer OTHER, SELFPAY ==
[2024-06-13 13:02] VITALS: BP 159/88; PULSE 80; RESP 14; TEMP 36.4; O2SAT 97
--- NOTE | 2024-06-13 13:30 | DI.RAD_ITS ---
Exam(s) XR KNEE LT 3V AP,LAT,UDAY EXAM: XR KNEE LT 3V AP,LAT,UDAY CLINICAL HISTORY: trauma. TECHNIQUE: 2D digital imaging was performed. COMPARISON: CR XR STANDING ALIGNMENT from 11/16/2021 CR XR KNEE RT 1V from 11/16/2021 CR XR KNEE RT 3V AP,LAT,UDAY from 06/13/2024 FINDINGS: 3 views No evidence of fracture. Prosthesis appears intact. No osseous lesions. No radiopaque foreign bodi es. IMPRESSION: No acute osseous findings in the left knee. Intact prosthesis. DATA REPOSITORY: RADIATION DOSE DELIVERED:
--- NOTE | 2024-06-13 13:30 | DI.RAD_ITS ---
Exam(s) XR KNEE RT 3V AP,LAT,UDAY EXAM: XR KNEE RT 3V AP,LAT,UDAY CLINICAL HISTORY: trauma. TECHNIQUE: 2D digital imaging was performed. COMPARISON: Prior x-rays 11/08/2022 FINDINGS: 3 views No evidence of acute fracture. Appearance of the components of the prosthesis remain stable. Small joint effusion noted. Bone density normal. No osseous lesions. IMPRESSION: No acute osseous findings. Intact prosthesis which appears unchanged from 11/08/2022. DATA REPOSITORY: RADIATION DOSE DELIVERED:
[2024-06-13 15:10] VITALS: BP 150/78
--- NOTE | 2024-06-13 15:37 | W.ED.GENAD ---
Discharge Plan Disposition Patient Disposition: Home Discharge Details Clinical Impression: Acute bilateral knee pain Primary Care Provider: Evangelist Amin ED Provider: Nancy Cnotreras Home Meds and New Rx's Prescriptions: No Action c-pap 1 unit inhalation HS metformin 1,000 mg tablet 1,000 mg PO BID Qty: 180 3RF amlodipine 10 mg tablet 10 mg PO DAILY Qty: 90 3RF atorvastatin 20 mg tablet 20 mg PO QPM Qty: 90 3RF omeprazole 20 mg capsule,delayed release(DR/EC) 20 mg PO DAILY Qty: 90 3RF sildenafil 100 mg tablet 100 mg PO DAILY PRN (Reason: sexual activity) Qty: 30 3RF Rx Instructions: administer 30 minutes to 4 hours before activity empagliflozin 25 mg tablet 25 mg PO DAILY Qty: 30 11RF losartan-hydrochlorothiazide 100-12.5 mg tablet 1 tab PO DAILY Qty: 90 3RF ibuprofen [Advil] 200 mg tablet 200 mg PO ONCE Discharge Instructions Additional Instructions: X-rays are unremarkable today you may have some stiffness and soreness over the next few days. Take it easy, take Motrin and Tylenol, ice the area If your symptoms are not improved, please follow-up with orthopedic surgery for reevaluation given your history of knee surgery Stand Alone Forms: Work Release HPI General Date/Time Provider Initiated Documentation: 06/13/24 13:30. Limitations to Documentation: no limitations. Information obtained by: patient. HPI Narrative: 63-year-old gentleman with past medical history of diabetes, bilateral knee replacement presents for evaluation after a fall. 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 He states that he had planted his left knee and twisted it and fell onto his right knee. He reports some pain and stiffness, but is still able to bear weight. Has not taken any medication prior to arrival, but is concerned about returning to work and is requesting some time off. Related Data Home Medications ?Medication ?Instructions ?Recorded ?Confirmed c-pap 1 unit inhalation HS 06/12/19 06/13/24 metformin 1,000 mg tablet 1,000 mg PO BID #180 tab-caps 09/06/23 06/13/24 losartan 100 1 tab PO DAILY #90 tabs 02/15/24 06/13/24 mg-hydrochlorothiazide 12.5 mg tablet amlodipine 10 mg tablet 10 mg PO DAILY #90 tabs 03/13/24 06/13/24 atorvastatin 20 mg tablet 20 mg PO QPM #90 tabs 03/13/24 06/13/24 empagliflozin 25 mg tablet 25 mg PO DAILY #30 tabs 03/13/24 06/13/24 omeprazole 20 mg capsule,delayed 20 mg PO DAILY #90 tab-caps 03/13/24 06/13/24 release sildenafil 100 mg tablet 100 mg PO DAILY PRN sexual 03/13/24 06/13/24 activity #30 tabs ibuprofen 200 mg tablet (Advil) 200 mg PO ONCE 06/13/24 06/13/24 Previous Rx's ?Medication ?Instructions ?Recorded metformin 1,000 mg tablet 1,000 mg PO BID #180 tab-caps 09/06/23 losartan 100 1 tab PO DAILY #90 tabs 02/15/24 mg-hydrochlorothiazide 12.5 mg tablet amlodipine 10 mg tablet 10 mg PO DAILY #90 tabs 03/13/24 atorvastatin 20 mg tablet 20 mg PO QPM #90 tabs 03/13/24 empagliflozin 25 mg tablet 25 mg PO DAILY #30 tabs 03/13/24 omeprazole 20 mg capsule,delayed 20 mg PO DAILY #90 tab-caps 03/13/24 release sildenafil 100 mg tablet 100 mg PO DAILY PRN sexual 03/13/24 activity #30 tabs Allergies Allergy/AdvReac Type Severity Reaction Status Date / Time No Known Allergies Allergy Verified 06/13/24 13:06 General Stated Complaint: Orthopedic IBETH: 4 Exam Narrative Exam Narrative: Review of Systems: All systems reviewed & are unremarkable except as noted in HPI and below Well-developed, no acute distress NCAT PERRL, normal conjunctiva RRR Unlabored respiratory effort Nondistended abdomen Bilateral knees with anterior surgical scars noted, the right knee has some abrasion and contusion noted. No effusions, full range of motion, no joint instability. No rashes or lesions. no focal neurologic deficits Appropriate mood and affect Course Vital Signs Vital signs: Vital Signs Temperature 36.4 C 06/13/24 13:02 Pulse 80 06/13/24 13:02 Respiratory Rate 14 06/13/24 13:02 Blood Pressure 159/88 H 06/13/24 13:02 Pulse Oximetry 97 06/13/24 13:02 Temperature 36.4 C 06/13/24 13:02 Temperature Source Skin 06/13/24 13:02 Pulse 80 06/13/24 13:02 Respiratory Rate 14 06/13/24 13:02 Respiratory Effort Normal, Non-Labored 06/13/24 13:55 Blood Pressure 150/78 H 06/13/24 15:10 Pulse Oximetry 97 06/13/24 13:02 Oxygen Delivery Method Room Air 06/13/24 13:02 Oxygen Flow Rate 0 06/13/24 13:02 Pain Level 6 06/13/24 13:55 Medical Decision Making Ration of bilateral knee pain after a fall. Low mechanism injury. No obvious deformity or instability on exam. X-ray is unremarkable. Recommend supportive care at home, if symptoms do not improve and recommend to follow-up with orthopedic surgeon Quality:SDOH Health Related Social Needs: No Data to Display PFSH All Active Problems Acute bilateral knee pain (Acute) Cough (Acute) Erectile dysfunction (Acute) Alcohol intake above recommended sensible limits (Acute) GERD (gastroesophageal reflux disease) (Acute) EGD ()-reflux esophagitis Increased body mass index (Acute) Knee pain, left (Acute) left; MRI showing degenerative changes in the medial meniscus; chronic lateral meniscal tear--arthroscopy 10/12 Post-traumatic osteoarthritis of right knee (Acute 12/13/16) Type 2 diabetes mellitus without complication (Acute 03/26/16) encouraged carb restriction and weight loss Ingrown toenail (Acute) will try longer course of antibiotic with ongoing soaking Well adult (Chronic) Viral URI with cough (Acute) Diabetes mellitus (Chronic) Hypertension (Chronic) History of arthroscopy of knee (Acute 10/11/13) Fracture of left ankle (Acute) Obesity (Chronic) Lumbago without sciatica (Acute ~10/2019) Chest pain (Acute) Osteoarthritis of right knee (Acute) Status post total right knee replacement (Acute 11/03/21) Medical History CHRISTELLE (obstructive sleep apnea) Surgical History History of total right knee replacement (TKR) (11/03/21) Status post arthroscopy of right shoulder (12/15/21) Status post total left knee replacement (11/03/17) DOS: 11/03/17 Dr. Dumont Family History Mother , age 90 No problems noted. Father Heart disease MD Brother Diabetes Maternal Grandfather No problems noted. Maternal Grandmother Stroke Paternal Grandmother No problems noted. Sister No problems noted. Sister Diabetes Brother No problems noted. Son No problems noted. Daughter No problems noted. Daughter No problems noted. 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 Pets and animals: Yes Pets and animals: dog(s) Sexually active: Yes Do you think of yourself as: straight/heterosexual Current gender identity: male What is your relationship status?: How often do you talk on the phone with friends or family?: three or more times per week How often do you get together with friends or relatives?: three or more times per week How often do you attend mormon or scientologist services?: decline to answer Do you belong to any clubs or organized social groups?: yes Panel score (0-1 are the most socially isolated patients): 3 What type of physical activity do you participate in: none Frequency: does not exercise Debra/Lutheran: Muslim Special debra needs: No Seatbelt use: sometimes Helmet use: No Drive intox or ride 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
== END 2024-06-13 15:10 | disposition home or self-care (01) ==
PROVIDERS: Emergency Provider Emergency Medicine; PCP Family Medicine
DX: M25.561 Pain in right knee (principal); M25.562 Pain in left knee; W19.XXXA Unspecified fall, initial encounter; Y99.0 Civilian activity done for income or pay
CPT/HCPCS: 73562; 99284; 99282

== ENCOUNTER 2024-11-20 18:32 | Outpatient (REF) | payer OTHER, SELFPAY ==
[2024-11-20 22:22] LABS: COMMENT (LAB VIEW ONLY) 54.61 mg/dL; Microalb ug/mg Crea 95.2 ug/mg Cr
== END 2024-11-20 18:33 | disposition home or self-care (01) ==
LOC: LBN 18:32
PROVIDERS: PCP Family Medicine; Visit Provider Family Medicine
DX: E11.9 Type 2 diabetes mellitus without complications (principal)
CPT/HCPCS: 82043; 82570

== ENCOUNTER 2025-06-12 04:10 | Outpatient (CLI) | payer OTHER, SELFPAY ==
[2025-06-12 17:56] LABS: Estimated GFR 100.06 (mL/min/1.73m2); Potassium 3.9 mmol/L (3.5-5.1)
[2025-06-13 22:47] LABS: Hepatitis C Ab w Rflx HCV PCR Negative (Negative)
[2025-06-13 22:51] LABS: HIV-1/2 Ag & Ab Screen Negative (Negative)
[2025-06-13 23:29] LABS: HBs Antibody, Quant <3.1 mIU/mL (See Note); Hepatitis B Surface Antigen Negative (Negative)
== END 2025-06-12 04:11 | disposition home or self-care (01) ==
PROVIDERS: PCP Family Medicine; Visit Provider Family Medicine
DX: Z11.59 Encounter for screening for other viral diseases (principal); I10 Essential (primary) hypertension
CPT/HCPCS: 36415; 86704; 86706; 86803; 87340; 87389; 82565; 84132

== ENCOUNTER 2025-10-29 11:02 | Outpatient (REF) | payer OTHER, SELFPAY ==
--- NOTE | 2025-10-29 08:50 | SKI_PTH ---
PATIENT: Asael Timmons LOC: [facility] U#:[id number] AGE/SX: 64/M ROOM: RE10/29/[address]: Evangelist Amin MD : 1960 BED: DIS: 10/29/2025 SPEC #: [id number] RECD: 10/29/25 18:27 STATUS: CHU REAlexi #: [id number] KASEY: 10/29/25 08:[address]: Evangelist Amin DEPT: Surgical Specimen RECD BY: Sravanthi Mooney Tissues: 1 - SKIN BIOPSY(SHAVE/PUNCH) Procedures: SKIN LEVEL 4 Comments: [id number]
== END 2025-10-29 11:03 | disposition home or self-care (01) ==
LOC: LBN 11:02
PROVIDERS: PCP Family Medicine; Visit Provider Family Medicine
DX: L85.9 Epidermal thickening, unspecified (principal)
CPT/HCPCS: 88305